=== PATIENT | male | born 1960 | race Caucasian/White ===

== ENCOUNTER 2022-11-12 14:58 | Outpatient (REF) | payer OTHER, SELFPAY | END 2022-11-12 14:59 | disposition home or self-care (01) | LOC: HO.BBR 14:58 | PROVIDERS: Visit Provider Internal Medicine Hematology & Oncology | DX: Z13.89 Encounter for screening for other disorder (principal) ==

== ENCOUNTER 2022-11-26 10:01 | Outpatient (REF) | payer OTHER, SELFPAY | END 2022-11-26 10:02 | disposition home or self-care (01) | LOC: HO.BBR 10:01 | PROVIDERS: Visit Provider Internal Medicine Hematology & Oncology | DX: Z13.89 Encounter for screening for other disorder (principal) ==

== ENCOUNTER 2022-12-10 15:01 | Outpatient (REF) | payer OTHER, SELFPAY | END 2022-12-10 15:02 | disposition home or self-care (01) | LOC: HO.BBR 15:01 | PROVIDERS: PCP Physician Assistant; Visit Provider Internal Medicine Hematology & Oncology | DX: Z13.89 Encounter for screening for other disorder (principal) ==

== ENCOUNTER 2022-12-24 13:48 | Outpatient (REF) | payer OTHER, SELFPAY | END 2022-12-24 13:49 | disposition home or self-care (01) | LOC: HO.BBR 13:48 | PROVIDERS: PCP Physician Assistant; Visit Provider Internal Medicine Hematology & Oncology | DX: Z13.89 Encounter for screening for other disorder (principal) ==

== ENCOUNTER 2023-01-07 12:51 | Outpatient (REF) | payer OTHER, SELFPAY | END 2023-01-07 12:52 | disposition home or self-care (01) | LOC: HO.BBR 12:51 | PROVIDERS: Visit Provider Internal Medicine Hematology & Oncology | DX: Z13.89 Encounter for screening for other disorder (principal) ==

== ENCOUNTER 2023-01-21 12:57 | Outpatient (REF) | payer OTHER, SELFPAY | END 2023-01-21 12:58 | disposition home or self-care (01) | LOC: HO.BBR 12:57 | PROVIDERS: Visit Provider Internal Medicine Hematology & Oncology | DX: Z13.89 Encounter for screening for other disorder (principal) ==

== ENCOUNTER 2023-03-05 15:05 | Outpatient (REF) | payer OTHER, SELFPAY | END 2023-03-05 15:06 | disposition home or self-care (01) | LOC: HO.BBR 15:05 | PROVIDERS: Visit Provider Internal Medicine Hematology & Oncology | DX: Z13.89 Encounter for screening for other disorder (principal) ==

== ENCOUNTER 2023-04-10 14:57 | Outpatient (REF) | payer OTHER, SELFPAY | END 2023-04-10 14:58 | disposition home or self-care (01) | LOC: HO.BBR 14:57 | PROVIDERS: Visit Provider Internal Medicine Hematology & Oncology | DX: Z13.89 Encounter for screening for other disorder (principal) ==

== ENCOUNTER 2023-05-13 14:49 | Outpatient (REF) | payer OTHER, SELFPAY | END 2023-05-13 14:50 | disposition home or self-care (01) | LOC: HO.BBR 14:49 | PROVIDERS: Visit Provider Internal Medicine Hematology & Oncology | DX: Z13.89 Encounter for screening for other disorder (principal) ==

== ENCOUNTER 2023-06-13 15:27 | Outpatient (REF) | payer OTHER, SELFPAY | END 2023-06-13 15:28 | disposition home or self-care (01) | LOC: HO.BBR 15:27 | PROVIDERS: PCP Physician Assistant; Visit Provider Internal Medicine Hematology & Oncology | DX: Z13.89 Encounter for screening for other disorder (principal) ==

== ENCOUNTER 2023-07-18 15:32 | Outpatient (REF) | payer OTHER, SELFPAY | END 2023-07-18 15:33 | disposition home or self-care (01) | LOC: HO.BBR 15:32 | PROVIDERS: PCP Physician Assistant; Visit Provider Internal Medicine Hematology & Oncology | DX: Z13.89 Encounter for screening for other disorder (principal) ==

== ENCOUNTER 2023-08-18 15:32 | Outpatient (REF) | payer OTHER, SELFPAY | END 2023-08-18 15:33 | disposition home or self-care (01) | LOC: HO.BBR 15:32 | PROVIDERS: PCP Physician Assistant; Visit Provider Internal Medicine Hematology | DX: Z13.89 Encounter for screening for other disorder (principal) ==

== ENCOUNTER 2023-09-08 15:20 | Outpatient (REF) | payer OTHER, SELFPAY | END 2023-09-08 15:21 | disposition home or self-care (01) | LOC: HO.BBR 15:20 | PROVIDERS: PCP Physician Assistant; Visit Provider Internal Medicine Hematology | DX: Z13.89 Encounter for screening for other disorder (principal) ==

== ENCOUNTER 2023-09-30 15:22 | Outpatient (REF) | payer OTHER, SELFPAY | END 2023-09-30 15:23 | disposition home or self-care (01) | LOC: HO.BBR 15:22 | PROVIDERS: PCP Physician Assistant; Visit Provider Internal Medicine Hematology | DX: Z13.89 Encounter for screening for other disorder (principal) ==

== ENCOUNTER 2023-10-23 15:03 | Outpatient (REF) | payer OTHER, SELFPAY | END 2023-10-23 15:04 | disposition home or self-care (01) | LOC: HO.BBR 15:03 | PROVIDERS: PCP Physician Assistant; Visit Provider Internal Medicine Hematology | DX: Z13.89 Encounter for screening for other disorder (principal) ==

== ENCOUNTER 2023-11-18 15:33 | Outpatient (REF) | payer OTHER, SELFPAY | END 2023-11-18 15:34 | disposition home or self-care (01) | LOC: HO.BBR 15:33 | PROVIDERS: PCP Physician Assistant; Visit Provider Internal Medicine Hematology | DX: Z13.89 Encounter for screening for other disorder (principal) ==

== ENCOUNTER 2024-05-26 14:47 | Outpatient (REF) | payer OTHER, SELFPAY | END 2024-05-26 14:48 | disposition home or self-care (01) | LOC: HO.BBR 14:47 | PROVIDERS: PCP Physician Assistant; Visit Provider Hospitalist | DX: Z13.89 Encounter for screening for other disorder (principal) ==

== ENCOUNTER 2024-07-08 08:56 | Outpatient (AMB) | payer OTHER, SELFPAY ==
--- NOTE | 2024-07-08 09:00 | A.OFFPC_ITS ---
Vital Signs 07/08/24 09:09 Height 6 ft 1 in Weight 159 lb 2 oz BMI 21.0 BP 124/58 L Blood Pressure Location Lt brachial Position Sitting Respiration 16 Pulse 58 Pulse Source Pulse Oximeter Temp 97.7 F Temp Source Oral Pulse Oximetry (%) 100 Oxygen Delivery Method Room Air Intake Visit Reasons: Establish Care Intake Note: patient here for new patient visit. Oral Surgery Technician Required: No Allergies No Known Allergies Allergy (Verified 07/08/24 09:03) Medication List - Last Reconciled 07/08/24 by Shea Burnham PA-C [id number]-hqtlmzllc-dmkrejbp 200-62.5-25 mcg (Trelegy Ellipta) 1 ea inhalation DAILY omeprazole 40 mg PO DAILY sildenafil 100 mg PO DAILY PRN Tobacco use date assessed: 07/08/24 Dental Screening Dental Screen Date: 07/08/24 Did you have a dental visit in the last 12 months?: Yes Did you have a dental problem in the last 6 months where you did not have access to dental care?: No Was dental information given to patient?: Patient has dentist HPI Establish Care HPI Details Patient is a 63-year-old male with a significant past medical history of anxiety depression, erectile dysfunction, pancreatic cyst, family history of pancreatic cancer, GERD, and hemochromatosis. GI: He was following with GI for GERD and his pancreatic cyst given his family history of pancreatic cancer. He states he just had imaging which showed stable findings. He was last seen by myself on 10/22/2022. He tells me he is going to get records. PULM: Following with pulmonology (but has not seen Dr. Harper in 1.5 years) and has been doing well with Romariogy until he recently had COVID. Recently had COVID 3 weeks ago and is still feeling sick with a cough, wheezing and some sinus congestion at times. States that his cough is productive of green sputum. - still smoking 30 cigarettes a day. He has been smoking for 45 years. He was supposed to be following with the low-dose CT scan screening program but states that he was lost to follow up. Psych: On Wellbutrin 100 mg twice a day But usually only takes this once a day. states he has a hard time sleeping. He takes 3 Advil PM at bedtime to try to make him fall asleep but he is often up and tossing and turning. He states that he can not get his mind to turn off sometimes. Heme: Was following with Dr. Rodriguez, now has a new robotic welding operator, for hemochromatosis q 3 months. He was started on calcium and vitamin D for osteopenia. Uro: follows with Dr. Castle for prostate checks and ED. Saw him earlier this year. States that he had a scan of his prostate and urethra told that everything looked normal. He would like to see Dermatology for a skin check. Colonoscopy/EGD: UTD completed 2023 PSA: utd- follows with dr. caslte Low-dose chest CT: Overdue PENDING SALE TO [facility] Medical History (Updated 07/08/24 @ 10:02 by Shea Burnham PA-C) Umbilical hernia Pancreatic cyst Joint pain Headache Erectile dysfunction Anxiety and depression Abnormal chest CT Surgical History (Updated 07/07/24 @ 16:09 by Amalia Sanchez CMA) H/O hemorrhoidectomy H/O: vasectomy Family History (Updated 07/08/24 @ 09:08 by Destiny Seay MA) Mother Liver disease Father Hx of CABG Prostate cancer Diabetes HTN (hypertension) Sister Cancer Social History Housing: House Patient Tobacco Use Status: Current everyday Tobacco user Cigarette Packs Per Day: 2 Cigarettes Per Day: 30 e-Cigarette/Vaping Use: Never Used Second Hand Smoke Exposure: No service: No Current occupational status: employed Current occupational exposures/hazards: No Cognitive needs: No Hearing needs: Yes Vision needs: Yes Questionnaire PHQ-9 Over the last 2 weeks, how often have you been bothered by any of the following problems? 1. Little interest or pleasure in doing things: several days 2. Feeling down, depressed, or hopeless: several days 3. Trouble falling or staying asleep, or sleeping too much: not at all 4. Feeling tired or having little energy: several days 5. Poor appetite or overeating: not at all 6. Feeling bad about yourself - or that you are a failure or have let yourself or your family down: not at all 7. Trouble concentrating on things, such as reading the newspaper or watching television: several days 8. Moving or speaking so slowly that other people could have noticed. Or the opposite - being so fidgety or restless that you have been moving around a lot more than usual: several days 9. Thoughts that you would be better off or of hurting yourself in some way: not at all Total score: 5 Source: Developed by Drs. Carlos Manuel Mckinley, Yudith Alvarado, Saeed White and colleagues, with an educational fan from [employer]. Thrive Questionnaire Date Thrive assessed: 07/02/24 I am a: Patient What is your living situation today?: I have a steady place to live Within the past 12 months, did the food you bought not last and you didn't have the money to get more?: Never true Within the past 12 months, did you worry whether your food would run out before you got money to buy more?: Never true Do you have trouble paying for medicines?: No Do you have trouble getting transportation to medical appointments?: No Do you have trouble paying your heating and electricity bill?: Yes Do you have trouble taking care of your child, family member or friend?: No Do you have trouble with day-to-day activities such as bathing, preparing meals, shopping, managing finances, etc.?: No Are you currently unemployed and looking for a job?: No Are you interested in more education?: No Please select the resources that you would like help with: None Currently or been in a relationship where the following occur: No concerns reported THRIVE Score: 1 AUDIT C Alcohol Use Questionnaire (AUDIT-C) 1. How often do you have a drink containing alcohol?: 2-3 times a week 2. How many drinks containing alcohol do you have on a typical day when you are drinking?: 3 or 4 3. How often do you have six or more drinks on one occasion?: Never Total Score: 4 WILBER-7 AMB Questionnaire WILBER-7 Date WILBER - 7 assessed: 07/08/24 Feeling nervous, anxious, or on edge: 1 = Several days Not being able to stop or control worryin = Several days Worrying too much about different things: 1 = Several days Trouble relaxin = Several days Being so restless that it is hard to sit still: 1 = Several days Becoming easily annoyed or irritable: 1 = Several days Feeling afraid as if something awful might happen: 1 = Several days Total WILBER-7 score (0-4 normal; 5-9 mild; 10-14 moderate; 15-21 severe): 7 Source: Developed by Drs. Carlos Manuel Mckinley, Yudith Alvarado, Saeed White and colleagues, with an educational fan from [employer]. Physical exam (Primary Care) Thrive Assessment: Date of Thrive Assessment Date Thrive assessed 07/02/24 07/02/24 08:32 Currently or been in a relationship where the following occur: No concerns reported Const Orientation/consciousness: patient oriented x3 HENMT Ears: hearing grossly normal bilaterally and TM's normal bilaterally Face and sinus: Yes sinuses nontender Neck Thyroid: Thyroid normal Lymphatic: no lymphadenopathy noted Resp Auscultation: rhonchi left lower and wheezes scattered wheezes Cardio Rate: regular rate Rhythm: regular rhythm Heart sounds: S1 normal heart sound present and S2 normal heart sound present GI Inspection: Yes normal to inspection Palpation (GI): Soft to palpation and Other GI palpation findings present (nontender, no cva tenderness) Auscultation: normoactive bowel sounds Rectal Exam - Male: Yes deferred Skin General skin exam: no rashes or lesions noted Neuro General: patient oriented x3, gait normal and no focal motor deficits Extrem General: Yes normal to inspection Coding Level of Care Code Est Pt Level 4 (63154) Complex EM visit Add On G2211 Diagnoses Chronic obstructive pulmonary disease with acute exacerbation J44.1 COPD type: COPD with acute exacerbation Lung infection J18.9 Smoker F17.200 Anxiety and depression F41.9; F32.A Insomnia, unspecified type G47.00 Insomnia type: unspecified Pancreatic cyst K86.2 Assessment & Plan Assessment & Plan (1) COPD (chronic obstructive pulmonary disease): Code(s): J44.9 - Chronic obstructive pulmonary disease, unspecified Category: Medical Qualifiers: COPD type: COPD with acute exacerbation Qualified Code(s): J44.1 - Chronic obstructive pulmonary disease with (acute) exacerbation Plan: Start prednisone taper. Refilled albuterol as he has been out of this. We discussed risks and benefits and adverse effects of this medication. Signs of a COPD exacerbation that would require emergent medical treatment were discussed. Continue Trelegy. (2) Lung infection: Code(s): J18.9 - Pneumonia, unspecified organism Category: Medical Plan: Start doxycycline. Discussed risks and benefits and adverse effects of this medication. Chest x-ray ordered. We will follow up pending test results. (3) Smoker: Code(s): F17.200 - Nicotine dependence, unspecified, uncomplicated Category: Social Hx Plan: Encouraged smoking cessation. He states that his last CT scan was over a year ago. He was supposed to be following with the low-dose CT scan program at [facility] but only went for a couple CT scans. I have referred him to pulmonology. (4) Anxiety and depression: Code(s): F41.9 - Anxiety disorder, unspecified; F32.A - Depression, unspecified Category: Medical Plan: Refilled Wellbutrin. (5) Insomnia: Code(s): G47.00 - Insomnia, unspecified Category: Medical Qualifiers: Insomnia type: unspecified Qualified Code(s): G47.00 - Insomnia, unspecified Plan: We will trial trazodone. Discussed risks and benefits and adverse effects of this medication. (6) Pancreatic cyst: Code(s): K86.2 - Cyst of pancreas Category: Medical Plan: Following with GI. Orders: Orders Lipid Panel Today F32.A - Depression, unspecified, F41.9 - Anxiety disorder, unspecified, K86.2 - Cyst of pancreas, N52.9 - Male erectile dysfunction, unspecified TSH reflex Free T4 Today F32.A - Depression, unspecified, F41.9 - Anxiety disorder, unspecified, K86.2 - Cyst of pancreas, N52.9 - Male erectile dysfunction, unspecified Comprehensive Met. Panel Today F32.A - Depression, unspecified, F41.9 - Anxiety disorder, unspecified, K86.2 - Cyst of pancreas, N52.9 - Male erectile dysfunction, unspecified UA CC w/rflx Micro + Cult Today F32.A - Depression, unspecified, F41.9 - Anxiety disorder, unspecified, K86.2 - Cyst of pancreas, N52.9 - Male erectile dysfunction, unspecified, Z13.220 - Encounter for screening for lipoid disorders XR chest 2V Today J18.9 - Pneumonia, unspecified organism Referrals Dermatology Referral L98.9 - Disorder of the skin and subcutaneous tissue, unspecified Thoracic/General Surgery Referral F17.200 - Nicotine dependence, unspecified, uncomplicated, Z12.2 - Encounter for screening for malignant neoplasm of respiratory organs Pulmonology Referral F17.200 - Nicotine dependence, unspecified, uncomplicated, J44.9 - Chronic obstructive pulmonary disease, unspecified, R93.89 - Abnormal findings on diagnostic imaging of other specified body structures Medications: New cyclobenzaprine 10 mg PO TID PRN 30 tabs 0RF muscle spasm trazodone 50 mg PO BEDTIME PRN 90 tabs 0RF sleep albuterol sulfate 90 mcg/actuation 2 puffs inhalation Q6H PRN 8.5 grams 1RF shortness of breath or wheezing prednisone take 3 tab po x 3 days, take 2 tab po x 3 days, 1 tab po x 3 days 18 tabs 0RF bupropion HCl XL (Wellbutrin XL) 150 mg PO QAM 90 tabs 3RF sildenafil 100 mg PO DAILY PRN 30 tabs 0RF sexual activity doxycycline hyclate 100 mg PO BID 20 tabs 0RF
[2024-07-08 09:09] VITALS: BP 124/58; PULSE 58; RESP 16; TEMP 36.5; O2SAT 100; BMI 21.0
== END 2024-07-08 09:55 | disposition home or self-care (01) ==
PROVIDERS: PCP Physician Assistant; Visit Provider Physician Assistant
DX: J44.1 Chronic obstructive pulmonary disease with (acute) exacerbation (principal); J18.9 Pneumonia, unspecified organism; F17.200 Nicotine dependence, unspecified, uncomplicated; F41.9 Anxiety disorder, unspecified; F32.A Depression, unspecified; G47.00 Insomnia, unspecified; K86.2 Cyst of pancreas

== ENCOUNTER → 2024-07-08 08:56 | Outpatient (BNVA) | payer OTHER, SELFPAY | PROVIDERS: PCP Physician Assistant; Visit Provider Physician Assistant ==

== ENCOUNTER 2024-07-08 10:00 | Outpatient (REF) | payer OTHER, SELFPAY ==
[2024-07-08 11:54] LABS: Alanine Aminotransferase 21 U/L (0-40); Albumin Level 4.3 g/dL (3.5-5.0); Alkaline Phosphatase 71 U/L (39-117); Anion Gap 11 (12-20); Aspartate Amino Transferase 17 U/L (5-37); Bilirubin Total 0.3 mg/dL (0.0-1.0); Blood Urea Nitrogen 22 mg/dL (9-16); Calcium 9.6 mg/dL (8.4-10.2); Carbon Dioxide 28 mmol/L (22-29); Chloride 105 mmol/L (96-108); Cholesterol 211 mg/dL (<200); Estimated Glomerular Filt Rate > 60; Glucose Random 78 mg/dL (60-115); HDL Cholesterol 63 mg/dL (>40); LDL Cholesterol Calculated 122 mg/dL (<100); Potassium 4.8 mmol/L (3.3-5.1); Sodium 139 mmol/L (135-145); Total Protein 6.9 g/dL (6.5-8.0); Triglycerides 132 mg/dL (<150)
[2024-07-08 12:05] LABS: Appearance Urine Clear; Color Urine Yellow; Glucose Urine UA Negative (Negative); Leukocyte Esterase Urine Negative (Negative); Nitrite Urine Negative (Negative); Specific Gravity - Urine 1.025 (1.005-1.025); Urine Blood Negative (Negative); Urine Ketones Negative (Negative); Urine Protein Negative (Neg-Trace)
[2024-07-08 12:13] LABS: TSH reflex Free T4 1.15 uIU/mL (0.32-4.0)
== END 2024-07-08 10:01 | disposition home or self-care (01) ==
LOC: HO.WFDLDS 10:00
PROVIDERS: Visit Provider Physician Assistant
DX: F41.9 Anxiety disorder, unspecified (principal); F32.A Depression, unspecified; K86.2 Cyst of pancreas; N52.9 Male erectile dysfunction, unspecified; Z13.220 Encounter for screening for lipoid disorders
CPT/HCPCS: 36415; 80053; 80061; 81003; 84443

== ENCOUNTER 2024-07-09 08:28 | Outpatient (REF) | payer OTHER, SELFPAY ==
--- NOTE | ~2024-07-09 | XR_ITS ---
EXAMINATION: XR CHEST CLINICAL INFORMATION: Pneumonia, unspecified organism COMPARISON: None available. TECHNIQUE: 2 views of the chest were obtained. FINDINGS: The lungs are well-expanded. No focal consolidation. No pleural effusions or pneumothorax. The cardiomediastinal silhouette is within normal limits. No acute osseous abnormality. Degenerative changes of thoracic spine. XR/XR chest 2V IMPRESSION: No acute pulmonary disease. Electronically signed by: Han Armenta MD 07/09/2024 09:07 AM EDT
== END 2024-07-09 08:29 | disposition home or self-care (01) ==
LOC: HO.XRAY 08:28
PROVIDERS: PCP Physician Assistant; Visit Provider Physician Assistant
DX: J18.9 Pneumonia, unspecified organism (principal)
CPT/HCPCS: 71046

== ENCOUNTER 2024-07-23 14:29 | Outpatient (AMB) | payer OTHER, SELFPAY ==
--- NOTE | 2024-07-23 13:19 | A.OFFVIS_ITS ---
Vital Signs 07/23/24 14:32 Height 6 ft 1 in Weight 157 lb 8 oz BMI 20.8 BP 120/74 Blood Pressure Location Rt brachial Position Sitting Pulse 69 Pulse Source Pulse Oximeter Pulse Oximetry (%) 97 Oxygen Delivery Method Room Air Intake Visit Reasons: COPD Allergies No Known Allergies Allergy (Verified 07/23/24 14:34) HPI HPI COPD: Details: Rommel is a pleasant 63-year-old female, current smoker, with 60+ pack year history with underlying COPD. He was referred by PCP for pulmonary evaluation. He is currently prescribed Trelegy and albuterol MDI with moderate effect. He was recently prescribed prednisone and doxycyline for exacerbation on 07/08 after worsening respiratory symptoms secondary to COVID towards the end of May. He did not have Paxlovid. Of note, he has been off of Trelegy for the past month notes worsening dyspnea on exertion and productive cough. He denies fevers or chills. Had PFT in 2021 which revealed mild COPD. He had prior chest CT in 2021 which revealed emphysema and other findings suggestive of NSIP. He had previously been established with [facility] pulmonary following abnormalities however lost to follow up. Denies any history of asthma however did have secondary exposures to tobacco as a child. He denies any seasonal allergies. He reports daughter, son and grandson with asthma. 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 He currently smokes 1-1.5 ppd previously 1.5-2 ppd for the past 45 years. He has trialed Chantix in the past with adverse reactions. He is currently on Wellbutrin which started on 07/08. Patient also notes worsening memory, brain fog, nonrestorative sleep, daytime fatigue and frequent nocturnal awakenings. He denies prior sleep study. [facility] Medical History (Updated 07/23/24 @ 15:23 by Josy Rushing NP) Umbilical hernia Pancreatic cyst Joint pain Headache Erectile dysfunction Anxiety and depression Abnormal chest CT Surgical History (Updated 07/07/24 @ 16:09 by Amalia Sanchez CMA) H/O hemorrhoidectomy H/O: vasectomy Family History (Updated 07/08/24 @ 09:08 by Destiny Seay MA) Mother Liver disease Father Hx of CABG Prostate cancer Diabetes HTN (hypertension) Sister Cancer Social History Housing: House Patient Tobacco Use Status: Current everyday Tobacco user Cigarette Packs Per Day: 2 Cigarettes Per Day: 30 e-Cigarette/Vaping Use: Never Used Second Hand Smoke Exposure: No service: No Current occupational status: employed Current occupational exposures/hazards: No Cognitive needs: No Hearing needs: Yes Vision needs: Yes Review of Systems Const Denies chills, Denies excessive sweating, Denies fever(s), Denies headache(s) and Denies night sweats Eyes Denies dry eyes, Denies irritation and Denies itchy eyes ENT Reports Normal hearing present, Denies headache(s), Denies nasal congestion, D enies nasal discharge, Denies post nasal drip and Denies sore throat Card Denies chest pain, Denies chest pain at rest, Denies chest pain with activity, Denies claudication, Denies leg edema, Denies orthopnea and Denies paroxysmal nocturnal dyspnea Resp Denies chest congestion, Denies excessive phlegm production, Denies pain on inspiration, Denies pain with cough, Denies stridor and Denies wheezing Musc Denies myalgias Neuro Reports Normal hearing present and Denies headache(s) Endo Denies excessive sweating Xavier/Lymph Denies lymphadenopathy Aller/Immun Denies itchy eyes, Denies seasonal rhinorrhea and Denies wheezing Physical Exam Vital Signs: Last Vital Signs Pulse 69 07/23/24 14:32 BP 120/74 07/23/24 14:32 Pulse Ox 97 07/23/24 14:32 Oxygen Delivery Method Room Air 07/23/24 14:32 BMI result Body Mass Index 20.8 Const General: cooperative, healthy appearing, comfortable, no acute distress, well developed and alert Orientation/consciousness: patient oriented x3 Limitations: no limitations HEENT Head: Yes normal to inspection, Yes normocephalic and Yes atraumatic Ears: hearing grossly normal bilaterally and external ears normal Eyes General: appearance normal, both eyes and all related structures Eyelids: Yes eyelids normal Sclerae: sclerae normal EOM: EOMs intact bilaterally Neck Neck: Yes normal visual inspection and Yes no lymphadenopathy Lymphatic: no lymphadenopathy noted Chest Chest palpation & inspection: normal inspection of the chest Resp Other: inspiratory crackles LLL Effort & Inspection: normal respiratory effort, able to speak in complete sentences, no audible wheezes, no stridor, not tachypneic, no tripod positioning and no use of accessory muscles Cardio Jugular venous distension: no JVD Rate: regular rate Rhythm: regular rhythm Skin Other: warm, dry General skin exam: no rashes or lesions noted Neuro General: patient oriented x3 Cranial nerves: Yes Normal hearing present Cognition (Neuro): normal cognition Gait exam (Neuro): Normal gait present Extrem General: Yes normal to inspection, Yes capillary refill normal, Yes no clubbing, cyanosis or edema and Yes no pedal edema Psych Appearance: grossly normal and well kempt Speech and movement: Normal speech and movement present and Clear speech present Affect: normal affect Attitude: cooperative Thought process: Normal thought process present Thought content: Normal thought content present Insight: Good insight present (Psych) Judgement: Good judgement present (Psych) Results Reviewed Results Reviewed: RESULT: CT Chest W/O Contrast CT Chest W/O Contrast Reason: Current smoker, history of emphysema, previous CT done in 2009. COMPARISON: Report from CT chest 03/09/2010. No images are available. TECHNIQUE: Helical CT scan of the chest without IV contrast, formatted in 3 planes. Weight-based protocol was performed using automatic exposure control. CTDIvol Body: 8.94 mGy, DLP Body: 353 mGy*cm. FINDINGS: Paper Mill Supervisor View Findings, Lines and Tubes: None. Trachea and Airways: Patent without evidence of tracheal or endobronchial lesion. Lungs and Pleura: No effusion or pneumothorax. Paraseptal emphysematous changes and multiple subpleural cysts mostly seen at the apices and the right lung base. Bilateral peripheral reticular opacities with a basal to apical distribution. 2 mm calcified nodule in the lateral segment of the right lower lobe (S3: 74). 5 mm nodule at the posterior segment of the right lung base (3:91), which may represent an atelectatic focus. Aorta: Mild vascular calcification but no aneurysm. Mediastinum and Jenna: No hematoma, mass or adenopathy. No esophageal abnormalities. Heart: Normal cardiac size. No pericardial effusion. Mild coronary artery calcifications. Chest Wall Soft Tissues: Normal. Diaphragm and upper abdomen: Normal. The partially visualized adrenal glands are unremarkable. Bones: Mild degenerative changes of the thoracic spine. No acute osseous process. IMPRESSION: Finding suggestive of moderate paraseptal emphysema with multiple bilateral subpleural cysts. Peripheral reticular opacities with the basal to apical distribution. These findings are suggestive of a chronic fibrotic process that is most compatible with nonspecific interstitial pneumonia (NSIP). 5 mm nodule at the posterior segment of the right lung base likely represent atelectatic focus. In a high-risk patient with a solid nodule <6 mm, CT at 12 months is optional with stronger consideration if there is suspicious nodule morphology and/or upper lobe location. Vasiliy Christine, et al. Guidelines for Management of Incidental Pulmonary Nodules Detected on CT Images: From the Fleischner Society 2017. Radiology. 2017 Mar;284(1):228-243. I have personally reviewed the images and I agree with this report. WSN: [id number] Ordering Physician: Shea Burnham PFT's Complete Please click on pdf link to open report PFT's Complete Lab: [facility] Name: ROMMEL ADKINS CMRN: [id number] Sex: M Age: 61 Ethnicity: C Height: 73 In Weight: 160 Lb BMI: 20.1 Referring: Ranjiht Harper M.D. Date of test: 08-Jul-2022 SPIROMETRY: FEV1 3.24, 83%; FVC 4.78, 94%; FEV1/FVC 68%; PEFR 5.27, 54%; SVC 5.04, 99% LUNG VOLUMES (N2): TLC 8.33, 105%; FRC 5.56, 135%; RV 3.29, 134%, IC 2.77, ERV 2.27 DIFFUSING CAPACITY: DLCO and KCO are 58% predicted adjusted for lung volume, Hb, barometric pressure DLCO 17.55, 57%, KCO 2.37, 60% predicteds adjusted for Hb of 15.7 VA 7.42, 96% 4.54, 89%, 95% of FVC INTERPRETATION: Mild obstruction with hyperinflation. TLC is normal. The diffusing capacity is moderately reduced. Interpreting Physician: Ranjith Harper M.D. Assessment & Plan Assessment & Plan (1) COPD (chronic obstructive pulmonary disease): Code(s): J44.9 - Chronic obstructive pulmonary disease, unspecified Category: Medical Qualifiers: COPD type: COPD with acute exacerbation Qualified Code(s): J44.1 - Chronic obstructive pulmonary disease with (acute) exacerbation (2) Smoker: Code(s): F17.200 - Nicotine dependence, unspecified, uncomplicated Category: Social Hx (3) Multiple pulmonary nodules: Code(s): R91.8 - Other nonspecific abnormal finding of lung field Category: Medical (4) Daytime somnolence: Code(s): R40.0 - Somnolence Category: Medical Plan Rommel presents for pulmonary evaluation for underlying mild COPD. Encouraged patient to restart Trelegy and use albuterol p.r.n.. Prior chest CT suggestive of NSIP, will send for repeat chest CT. Smoking cessation discussed and patient currently on Wellbutrin. He reported symptoms suggestive of OWEN, will send for home sleep study. All questions were answered and patient is in agreement of plan. Will follow-up in 6-8 weeks or sooner if needed. ct home sleep study refill trelegy Orders: Orders RT home sleep study Today R40.0 - Somnolence CT chest wo IV con Today R91.8 - Other nonspecific abnormal finding of lung field Medications: New mlqjmijxaeg-tvainghcl-hnydrjte 200-62.5-25 mcg (Trelegy Ellipta) 1 ea inhalation DAILY 60 ea 6RF Coding Level of Care Code New Pt Level 4 (80243) Diagnoses Chronic obstructive pulmonary disease with acute exacerbation J44.1 COPD type: COPD with acute exacerbation Smoker F17.200 Multiple pulmonary nodules R91.8 Daytime somnolence R40.0
[2024-07-23 14:32] VITALS: BP 120/74; PULSE 69; O2SAT 97; BMI 20.8
== END 2024-07-23 15:06 | disposition home or self-care (01) ==
PROVIDERS: PCP Physician Assistant; Referring Provider Physician Assistant; Visit Provider Nurse Practitioner Family
DX: J44.1 Chronic obstructive pulmonary disease with (acute) exacerbation (principal); F17.200 Nicotine dependence, unspecified, uncomplicated; R91.8 Other nonspecific abnormal finding of lung field; R40.0 Somnolence
CPT/HCPCS: 99204

== ENCOUNTER → 2024-07-23 14:29 | Outpatient (BNVA) | payer OTHER, SELFPAY | PROVIDERS: PCP Physician Assistant; Referring Provider Physician Assistant; Visit Provider Nurse Practitioner Family ==

== ENCOUNTER 2024-08-12 10:25 | Outpatient (AMB) | payer OTHER, SELFPAY ==
--- NOTE | 2024-08-12 10:50 | A.OFFPC_ITS ---
Vital Signs 08/12/24 10:55 08/12/24 10:59 Height 6 ft 1 in Weight 159 lb 6 oz BMI 21.0 BP 142/86 H 122/80 Blood Pressure Location Rt brachial Rt brachial Position Sitting Sitting Pulse 55 Pulse Source Pulse Oximeter Pulse Oximetry (%) 98 Oxygen Delivery Method Room Air Intake Visit Reasons: 30 min med check Intake Note: Follow up. Lower right sided pain Allergies trazodone Allergy (Unknown, Verified 08/12/24 10:58) tremors Medication List - Last Reconciled 08/12/24 by Shea Burnhma PA-C albuterol sulfate 90 mcg/actuation 2 puffs inhalation Q6H PRN bupropion HCl XL (Wellbutrin XL) 150 mg PO QAM cyclobenzaprine 10 mg PO TID PRN xnnloxugize-pzmoavndz-vfiedmvw 200-62.5-25 mcg (Trelegy Ellipta) 1 ea inhalation DAILY ibuprofen-diphenhydramine cit 200-38 mg (Advil PM) 3 caps PO BEDTIME omeprazole 40 mg PO DAILY sildenafil 100 mg PO DAILY PRN Tobacco use date assessed: 07/08/24 Dental Screening Dental Screen Date: 07/08/24 HPI 30 min med check HPI Details Patient is a 63-year-old male with a significant past medical history of anxiety depression, erectile dysfunction, pancreatic cyst, family history of pancreatic cancer, GERD, and hemochromatosis presenting today for a follow up. GI: He was following with GI for GERD and his pancreatic cyst given his family history of pancreatic cancer. He states he just had imaging which showed stable findings. He was last seen by myself on 10/22/2022. He tells me he is going to get records. PULM: Following with pulmonology and has been doing well with Trelegy until he recently had COVID. -He had a sleep study ordered - still smoking 30 cigarettes a day. He has been smoking for 45 years. He was supposed to be following with the low-dose CT scan screening program but states that he was lost to follow up. Psych: On Wellbutrin 150 mg. states he has a hard time sleeping. He trialed the trazodone but states it made him feel shaky. He did not like it. He wants to try something different. Heme: Was following with Dr. Rodriguez, now has a new quality consultant, for hemochromatosis q 3 months. He was started on calcium and vitamin D for osteopenia. Uro: follows with Dr. Castle for prostate checks and ED. Saw him earlier this year. States that he had a scan of his prostate and urethra told that everything looked normal. Musculoskeletal: He states that his right flank has been painful now for the last few months. He states that intermittently he would get lumbar strains and mid back strains but this just feels deeper than that. He is using the heating pad almost every day. In the past he require cortisone injections. He has not had anything for about 8 years. Denies any radiation down the legs. No nu mbness, tingling or weakness. No bowel or bladder dysfunction. No urinary symptoms. He is worried that this could be something like his kidney or gallbladder. He does not have any pain with eating. Denies any nausea, vomiting or diarrhea. Denies any increased urinary frequency or urgency. No blood in the urine. Did have a recent urine which was negative. He would like to see Dermatology for a skin check. Colonoscopy/EGD: UTD completed 2023 PSA: utd- follows with dr. castle Low-dose chest CT: Overdue [facility] Medical History (Updated 08/12/24 @ 11:14 by Shea Burnham PA-C) Umbilical hernia Pancreatic cyst Joint pain Headache Erectile dysfunction Anxiety and depression Abnormal chest CT Surgical History (Updated 07/07/24 @ 16:09 by Amalia Sanchez CMA) H/O hemorrhoidectomy H/O: vasectomy Family History (Updated 07/08/24 @ 09:08 by Destiny Seay MA) Mother Liver disease Father Hx of CABG Prostate cancer Diabetes HTN (hypertension) Sister Cancer Social History (Updated 08/12/24 @ 11:00 by Amalia Sanchez CMA) Housing: House Alcohol intake: current Patient Tobacco Use Status: Current everyday Tobacco user Cigarette Packs Per Day: 2 Cigarettes Per Day: 30 e-Cigarette/Vaping Use: Never Used Second Hand Smoke Exposure: No service: No Current occupational status: employed Current occupational exposures/hazards: No Cognitive needs: No Hearing needs: Yes Vision needs: Yes Questionnaire PHQ-9 Over the last 2 weeks, how often have you been bothered by any of the following problems? 9. Thoughts that you would be better off or of hurting yourself in some way: not at all Source: Developed by Drs. Carlos Manuel Mckinley, Yudith Alvarado, Saeed White and colleagues, with an educational fan from [employer]. Thrive Questionnaire Date Thrive assessed: 07/02/24 I am a: Patient What is your living situation today?: I have a steady place to live Within the past 12 months, did the food you bought not last and you didn't have the money to get more?: Never true Within the past 12 months, did you worry whether your food would run out before you got money to buy more?: Never true Do you have trouble paying for medicines?: No Do you have trouble getting transportation to medical appointments?: No Do you have trouble paying your heating and electricity bill?: Yes Do you have trouble taking care of your child, family member or friend?: No Do you have trouble with day-to-day activities such as bathing, preparing meals, shopping, managing finances, etc.?: No Are you currently unemployed and looking for a job?: No Are you interested in more education?: No Please select the resources that you would like help with: None Currently or been in a relationship where the following occur: No concerns reported THRIVE Score: 1 WILBER-7 AMB Questionnaire WILBER-7 Date WILBER - 7 assessed: 07/08/24 Becoming easily annoyed or irritable: 0 = Not at all Source: Developed by Drs. Carlos Manuel Mckinley, Saeed Hatfield and colleagues, with an educational fan from [employer]. Physical exam (Primary Care) Vital Signs: Last Vital Signs Pulse 55 08/12/24 10:55 BP 122/80 08/12/24 10:59 Pulse Ox 98 08/12/24 10:55 Oxygen Delivery Method Room Air 08/12/24 10:55 BMI result Body Mass Index 21.0 Tobacco/Smoking Status: Tobacco use Status Tobacco use date assessed 07/08/24 08/12/24 10:58 Patient Tobacco Use Status Current everyday Tobacco 08/12/24 11:00 e-Cigarette/Vaping Use Never Used 08/12/24 11:00 Thrive Assessment: Date of Thrive Assessment Date Thrive assessed 07/02/24 08/12/24 10:58 Currently or been in a relationship where the following occur: No concerns reported Const Orientation/consciousness: patient oriented x3 HENMT Ears: hearing grossly normal bilaterally Neck Thyroid: Thyroid normal Lymphatic: no lymphadenopathy noted Resp Auscultation: clear to auscultation bilaterally Cardio Rate: regular rate Rhythm: regular rhythm Heart sounds: S1 normal heart sound present and S2 normal heart sound present GI Inspection: Yes normal to inspection Palpation (GI): Soft to palpation and Other GI palpation findings present (nontender, no cva tenderness) Auscultation: normoactive bowel sounds Rectal Exam - Male: Yes deferred Skin General skin exam: no rashes or lesions noted Neuro General: patient oriented x3, gait normal and no focal motor deficits Results Reviewed Results Reviewed: Patient is a 63-year-old male with a significant past medical history of anxiety depression, erectile dysfunction, pancreatic cyst, family history of pancreatic cancer, GERD, and hemochromatosis. GI: He was following with GI for GERD and his pancreatic cyst given his family history of pancreatic cancer. He states he just had imaging which showed stable findings. He was last seen by myself on 10/22/2022. He tells me he is going to get records. PULM: Following with pulmonology (but has not seen Dr. Harper in 1.5 years) and has been doing well with Trelegy until he recently had COVID. Recently had COVID 3 weeks ago and is still feeling sick with a cough, wheezing and some sinus congestion at times. States that his cough is productive of green sputum. - still smoking 30 cigarettes a day. He has been smoking for 45 years. He was supposed to be following with the low-dose CT scan screening program but states that he was lost to follow up. Psych: On Wellbutrin 100 mg twice a day But usually only takes this once a day. states he has a hard time sleeping. He takes 3 Advil PM at bedtime to try to make him fall asleep but he is often up and tossing and turning. He states that he can not get his mind to turn off sometimes. Heme: Was following with Dr. Rodriguez, now has a new quality consultant, for hemochromatosis q 3 months. He was started on calcium and vitamin D for o steopenia. Uro: follows with Dr. Castle for prostate checks and ED. Saw him earlier this year. States that he had a scan of his prostate and urethra told that everything looked normal. He would like to see Dermatology for a skin check. Colonoscopy/EGD: UTD completed 2023 PSA: utd- follows with dr. castle Low-dose chest CT: Overdue Coding Level of Care Code Est Pt Level 4 (89785) Complex EM visit Add On G2211 Diagnoses Right flank pain R10.9 Chronic lumbar pain M54.50; G89.29 Right-sided thoracic back pain M54.6 Insomnia, unspecified type G47.00 Insomnia type: unspecified Assessment & Plan Assessment & Plan (1) Right flank pain: Code(s): R10.9 - Unspecified abdominal pain Category: Medical Plan: Ultrasound ordered (2) Chronic lumbar pain: Code(s): M54.50 - Low back pain, unspecified; G89.29 - Other chronic pain Category: Medical Plan: X-ray ordered (3) Right-sided thoracic back pain: Code(s): M54.6 - Pain in thoracic spine Category: Medical Plan: As above. Referral to physiatry. (4) Insomnia: Code(s): G47.00 - Insomnia, unspecified Category: Medical Qualifiers: Insomnia type: unspecified Qualified Code(s): G47.00 - Insomnia, unspecified Plan: We will try hydroxyzine. We discussed risks and benefits and adverse effects of this medication. He will let me know if it is effective. Orders: Orders XR thoracic spine 3V Today M54.6 - Pain in thoracic spine XR lumbar spine 2-3V Today M54.50 - Low back pain, unspecified US retroperitoneal comp Today G89.29 - Other chronic pain, M54.50 - Low back pain, unspecified, M54.6 - Pain in thoracic spine, R10.9 - Unspecified abdominal pain Referrals Physiatry Referral G89.29 - Other chronic pain, M54.50 - Low back pain, unspecified, M54.6 - Pain in thoracic spine Medications: New hydroxyzine HCl 25 mg PO BEDTIME 30 tabs 2RF
[2024-08-12 10:55] VITALS: BP 142/86; PULSE 55; O2SAT 98; BMI 21.0
[2024-08-12 10:59] VITALS: BP 122/80
== END 2024-08-12 11:31 | disposition home or self-care (01) ==
PROVIDERS: PCP Physician Assistant; Visit Provider Physician Assistant
DX: R10.9 Unspecified abdominal pain (principal); M54.50 Low back pain, unspecified; G89.29 Other chronic pain; M54.6 Pain in thoracic spine; G47.00 Insomnia, unspecified

== ENCOUNTER 2024-08-31 16:12 | Outpatient (REF) | payer OTHER, SELFPAY ==
--- NOTE | ~2024-08-31 | XR_ITS ---
EXAMINATION: XR THORACIC SPINE CLINICAL INFORMATION: M54.6 - Pain in thoracic spine COMPARISON: None available. TECHNIQUE: 3 views of the thoracic spine were obtained. FINDINGS: Marginal osteophyte formation, endplate sclerosis and decreased intervertebral disc height at T9-10. No acute cortical disruption or gross malalignment. Questionable grade 1 anterolisthesis C3-4. No lytic or blastic lesions. XR/XR thoracic spine 3V IMPRESSION: Multilevel spondylosis more conspicuous at T9-10. Electronically signed by: Sudheer Valle MD 09/10/2024 03:18 PM EST
--- NOTE | ~2024-08-31 | XR_ITS ---
EXAMINATION: XR LUMBOSACRAL SPINE CLINICAL INFORMATION: M54.50 - Low back pain, unspecified COMPARISON: None available. TECHNIQUE: Three views of the lumbosacral spine. FINDINGS: Submitted for interpretation on September 10, 2024. Dextroconvex rotoscoliosis apex at L2-3. Marginal osteophyte formation, endplate sclerosis and decreased intervertebral disc height, L2-3 and L4-5 levels. Facet joint hypertrophy at L5-S1. Grade 1 retrolisthesis, L2-3. No acute cortical disruption. No lytic or blastic lesions. XR/XR lumbar spine 2-3V IMPRESSION: Multilevel spondylosis and dextroconvex rotoscoliosis more conspicuous at L2-3 and L4-5 levels. Grade 1 retrolisthesis, L2-3. Electronically signed by: Sudheer Valle MD 09/10/2024 03:16 PM [facility]
--- NOTE | ~2024-08-31 | US_ITS ---
EXAMINATION: US RETROPERITONEAL COMPLETE (RENAL) CLINICAL INFORMATION: Unspecified abdominal pain. COMPARISON: None available. TECHNIQUE: Real-time imaging of the kidneys and bladder seen grayscale and color Doppler technique. FINDINGS: Submitted for interpretation on September 10, 2024. RIGHT KIDNEY: 11 x 5 x 6 cm (SAG x AP x TRV). The kidney is normal in size, contour, and echogenicity. Renal cortical thickness is normal. No renal calculi or hydronephrosis. There is a 1.2 cm anechoic lesion in the upper pole without flow on color Doppler interrogation. There is flow on color Doppler interrogation of the renal hilum. LEFT KIDNEY: 11 x 6 x 5 cm (SAG x AP x TRV). The kidney is normal in size, contour, and echogenicity. Renal cortical thickness is normal. No renal calculi or hydronephrosis. There is a 1 cm anechoic lesion at the corticomedullary junction midportion. No flow on color Doppler interrogation. Questionable punctate calcification. There is flow on color Doppler interrogation of the renal hilum. BLADDER: Fluid-filled. Bilateral ureteral jets are demonstrated. Prevoid bladder volume is 127.0 mL. Postvoid bladder volume is 5 mL. PROSTATE GLAND: The prostate volume is 22 mL. US/US retroperitoneal comp IMPRESSION: No hydronephrosis. No residual amount of urine in a post void image. Bilateral renal cysts. Questionable nonobstructing calculus left kidney.. Electronically signed by: Sudheer Valle MD 09/10/2024 03:50 PM EST
== END 2024-08-31 16:13 | disposition home or self-care (01) ==
LOC: HO.US 16:12
PROVIDERS: PCP Physician Assistant; Visit Provider Physician Assistant
DX: R10.9 Unspecified abdominal pain (principal); M54.50 Low back pain, unspecified; G89.29 Other chronic pain; M54.6 Pain in thoracic spine
CPT/HCPCS: 72072; 72100; 76770

== ENCOUNTER → 2024-08-31 16:15 | Outpatient (BNV) | payer OTHER, SELFPAY | PROVIDERS: PCP Physician Assistant; Visit Provider Radiology Diagnostic Radiology | DX: R10.9 Unspecified abdominal pain (principal); M47.9 Spondylosis, unspecified; M41.86 Other forms of scoliosis, lumbar region | CPT/HCPCS: 72072; 72100; 76770 ==

== ENCOUNTER → 2024-09-02 14:49 | Outpatient (REF) | payer OTHER, SELFPAY | LOC: HO.SL 14:49 | PROVIDERS: PCP Physician Assistant; Visit Provider Nurse Practitioner Family | DX: R40.0 Somnolence (principal); G47.33 Obstructive sleep apnea (adult) (pediatric) | CPT/HCPCS: 95806 ==

== ENCOUNTER → 2024-09-02 15:03 | Outpatient (BNV) | payer OTHER, SELFPAY | PROVIDERS: PCP Physician Assistant; Visit Provider Psychiatry & Neurology Neurology | DX: G47.33 Obstructive sleep apnea (adult) (pediatric) (principal) | CPT/HCPCS: 95806 ==

== ENCOUNTER 2024-09-10 10:37 | Outpatient (AMB) | payer OTHER, SELFPAY ==
--- NOTE | 2024-09-10 12:21 | MHC.OFFWIV ---
Intake Vital Signs 09/10/24 12:25 Height 6 ft 1 in Weight 151 lb BMI 19.9 BP 117/70 Blood Pressure Location Rt brachial Position Sitting Respiration 12 Pulse 63 Pulse Source Pulse Oximeter Temp 97.6 F Temp Source Oral Pulse Oximetry (%) 100 Oxygen Delivery Method Room Air Intake Visit Reasons: cough/fever/weak Intake Note: Patient complaining of fever, chills, sob, dizziness, lightheaded, back px, and upset stomach since Friday off and on. Patient Tobacco Use Status: Current everyday Tobacco user Allergies trazodone Allergy (Unknown, Verified 09/10/24 12:44) tremors Medication List - Last Reconciled 09/10/24 by Dana Oakley, NON DESTRUCTIVE TESTING INSPECTOR- albuterol sulfate 90 mcg/actuation 2 puffs inhalation Q6H PRN bupropion HCl XL (Wellbutrin XL) 150 mg PO QAM cyclobenzaprine 10 mg PO TID PRN neqnvobuxwe-gyryehdxk-ouktfrgv 200-62.5-25 mcg (Trelegy Ellipta) 1 ea inhalation DAILY hydroxyzine HCl 25 mg PO BEDTIME ibuprofen-diphenhydramine cit 200-38 mg (Advil PM) 3 caps PO BEDTIME omeprazole 40 mg PO DAILY sildenafil 100 mg PO DAILY PRN Do you need a note to return to daycare/school/sports/work: No HPI HPI Comments History of Present Illness Details History of Present Illness The patient is a 63-year-old male presenting with flu-like symptoms. He reports onset of fever, chills, weakness, and cough since Friday night, which improved slightly during Friday when he attended work. Symptoms recurred with fever on Friday. The patient has a history of emphysema, currently managed with daily Trelegy in the morning and Albuterol as needed, though he reports limited relief with Albuterol. Notably, he has a recurrent history of bacterial pneumonia resulting in increased frequency this past year, with four episodes. He was treated with antibiotics for pneumonia one to two months ago. Has CT of chest ordered by Pulm today. Unrelated mentions: The patient has had an ultrasound identifying a renal cyst, and he describes experiencing significant back pain, which varies in intensity. There is notable urgency and frequency in urination, notably worsening with illness, although not consistently new. He reports an episodic pattern of back pain over the last five years and has been living with a heating pad for symptomatic relief. Physical Exam Awake alert NAD Sclera and conjunctiva clear bilat Nares patent, turbinates within normal limits, no sinus tenderness with palpation bilat TM intact and clear bilat MMM, pharynx WNL RRR LS CTAB Plan - Initiate Tamiflu to address suspected influenza; two doses daily for five days to expedite recovery and reduce transmission. - Monitor and continue management of emphysema with current inhalers; assess efficacy, given limited relief. Smoking cessation. - Further evaluation of the renal cyst is necessary; schedule follow-up with PCP to review plan of care. - Ensure appropriate follow-up regarding the recurrent pneumonia episodes, potentially correlate with CT chest results once available. - Encourage continued symptom monitoring and report any further complications such as nausea or changes in urination, which may indicate a concurrent urinary tract concern. Patient was informed and verbally consented to the use of an ambient scribe for clinic note documentation during this visit. RTO edu provided, encouraged to schedule PCP fu 1-2 weeks to review renal cyst plan of care This note is constructed using voice recognition software. While every effort has been made to ensure accuracy in dressed poultry grader, still errors may have been included Sometimes, these errors may affect the content or meaning of the given sentence . Total time spent caring for the patient today was 30 minutes. This includes time spent before the visit reviewing the chart, time spent during the visit, and time spent after the visit on documentation COUNT INCLUDES THE [facility] Medical History (Updated 09/10/24 @ 17:58 by Dana Oakley, [facility]) Umbilical hernia Pancreatic cyst Joint pain Headache Erectile dysfunction Anxiety and depression Abnormal chest CT Surgical History (Updated 07/07/24 @ 16:09 by Amalia Sanchez CMA) H/O hemorrhoidectomy H/O: vasectomy Family History (Updated 07/08/24 @ 09:08 by Destiny Seay MA) Mother Liver disease Father Hx of CABG Prostate cancer Diabetes HTN (hypertension) Sister Cancer Social History (Updated 08/12/24 @ 11:00 by Amalia Sanchez CMA) Housing: House Alcohol intake: current Patient Tobacco Use Status: Current everyday Tobacco user Cigarette Packs Per Day: 2 Cigarettes Per Day: 30 e-Cigarette/Vaping Use: Never Used Second Hand Smoke Exposure: No service: No Current occupational status: employed Current occupational exposures/hazards: No Cognitive needs: No Hearing needs: Yes Vision needs: Yes Physical Exam Vital Signs: Last Vital Signs Temp 97.6 F 09/10/24 12:25 Pulse 63 09/10/24 12:25 Resp 12 09/10/24 12:25 BP 117/70 09/10/24 12:25 Pulse Ox 100 09/10/24 12:25 Oxygen Delivery Method Room Air 09/10/24 12:25 BMI result Body Mass Index 19.9 Assessment & Plan Assessment & Plan (1) Flu-like symptoms: Code(s): R68.89 - Other general symptoms and signs (2) Smoker: Code(s): F17.200 - Nicotine dependence, unspecified, uncomplicated (3) COPD (chronic obstructive pulmonary disease): Code(s): J44.9 - Chronic obstructive pulmonary disease, unspecified Qualifiers: COPD type: COPD with acute exacerbation Qualified Code(s): J44.1 - Chronic obstructive pulmonary disease with (acute) exacerbation (4) Renal cyst: Code(s): N28.1 - Cyst of kidney, acquired Plan . Medications: New oseltamivir (Tamiflu) 75 mg PO Q12H 10 caps 0RF 5 days Coding Level of Care Code Est Pt Level 4 (40363) Diagnoses Flu-like symptoms R68.89 Smoker F17.200 Chronic obstructive pulmonary disease with acute exacerbation J44.1 COPD type: COPD with acute exacerbation Renal cyst N28.1
[2024-09-10 12:25] VITALS: BP 117/70; PULSE 63; RESP 12; TEMP 36.4; O2SAT 100; BMI 19.9
== END 2024-09-10 13:01 | disposition home or self-care (01) ==
LOC: HO.HMCWIW 10:37
PROVIDERS: PCP Physician Assistant; Visit Provider Nurse Practitioner Family
DX: R68.89 Other general symptoms and signs (principal); F17.200 Nicotine dependence, unspecified, uncomplicated; J44.1 Chronic obstructive pulmonary disease with (acute) exacerbation; N28.1 Cyst of kidney, acquired

== ENCOUNTER 2024-09-10 13:32 | Outpatient (REF) | payer OTHER, SELFPAY | END 2024-09-10 13:33 | disposition home or self-care (01) | LOC: HO.CT 13:32 | PROVIDERS: PCP Physician Assistant; Visit Provider Nurse Practitioner Family | DX: R91.8 Other nonspecific abnormal finding of lung field (principal) | CPT/HCPCS: 71250 ==

== ENCOUNTER → 2024-09-10 13:36 | Outpatient (BNV) | payer OTHER, SELFPAY | PROVIDERS: PCP Physician Assistant; Visit Provider Radiology Diagnostic Radiology | DX: R91.8 Other nonspecific abnormal finding of lung field (principal); J43.9 Emphysema, unspecified | CPT/HCPCS: 71250 ==

== ENCOUNTER 2024-09-16 14:40 | Outpatient (AMB) | payer OTHER, SELFPAY ==
--- NOTE | 2024-09-16 14:41 | A.OFFPC_ITS ---
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 Allergies trazodone Allergy (Unknown, Verified 09/16/24 14:43) tremors Medication List - Last Reconciled 09/16/24 by Shea Burnham PA-C albuterol sulfate 90 mcg/actuation 2 puffs inhalation Q6H PRN benzonatate 100 mg PO TID PRN bupropion HCl XL (Wellbutrin XL) 150 mg PO QAM doxycycline hyclate 100 mg PO BID qainseajntk-ocevdayob-ccystwtc 200-62.5-25 mcg (Trelegy Ellipta) 1 ea inhalation DAILY hydroxyzine HCl 25 mg PO BEDTIME ibuprofen-diphenhydramine cit 200-38 mg (Advil PM) 3 caps PO BEDTIME omeprazole 40 mg PO DAILY sildenafil 100 mg PO DAILY PRN tizanidine (Zanaflex) 4 mg PO Q8H PRN Tobacco use date assessed: 07/08/24 Dental Screening Dental Screen Date: 07/08/24 HPI Renal cyst/has questions and having lots of pain HPI Details History of Present Illness The patient is a 63-year-old male presenting with chronic back pain and episodes of dizziness. 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 The patient has been experiencing chronic back pain, exacerbated by physical activity, which is attributed to the osteoarthritic changes. He has an upcoming appointment scheduled with physiatry. He is using Advil with temporary improvement. Interventions for the back pain have included pfew-itg-zgdtvtf medications like Tylenol and Advil. He has been prescribed muscle relaxants (Xanaflex) with prior effective responses, although he reported limited relief with Flexeril recently. The patient also reports episodes of dizziness and near-fainting, including two instances in the past week?one at breakfast where he had to sit in his truck and another three days later. He states that he thinks he was well hydrated. He was not fasting. He was not on any new medications. He did not have any chest pain with it but he does have baseline shortness on breath with his COPD. He denies experiencing any palpitations at the time. Additionally, he had diagnostic tests which revealed bilateral kidney cysts and a possible nonobstructing renal stone on the left side. He was referred to Urology and has an upcoming appointment. The patient also notes symptoms of a persistent cough lasting three weeks, not improved with Tamiflu. He states that it started with flu-like symptoms and then resulted in this ongoing productive cough. He has been using albuterol only a couple times a week. Compliant with the Trelegy. His CT scan from pulmonology is still pending. The dizziness episodes led to a discussion about further cardiac evaluations due to the patient's history and risk factors, including age and smoking. Health Maintenance - Frequent monitoring of hydration statu s - Encouraged to increase water intake an d maintain hydration - Advised on the use of inhalers for LINING MARKER D management - Monitoring of blood glucose levels giv en dietary concerns - Advised cardiac evaluation including s tress test, Holter monitor, and carotid ultrasound Social History - Smoker - Poor dietary habits with high consumpt ion of soda and coffee - Reported routine physical activity inc luding job-related physical exertion Review of Systems - Neurological: Reports dizziness and ne ar-fainting episodes. - Respiratory: Reports persistent cough for three weeks. - Musculoskeletal: Reports chronic back pain, especially in lower back region. - Cardiovascular: Reports episodes of li ghtheadedness without any chest pain. Physical Exam General: Well developed, well nourished, in no acute distress. Appears stated age. Cardiac: RRR, no murmurs. Presyncope episodes noted; cardiac workup planned including Holter monitor, stress test, and echocardiogram. Lungs: clear, equal breath sounds. Reports of crackles noted; advised to use inhaler more frequently. Abdomen: soft, nontender, no CVA tenderness. Kidney cysts noted on ultrasound; follow-up with urology planned. Extremities: no edema Neuro: alert, oriented x3, mood appropriate. Reports of dizziness and lightheadedness; orthostatic vitals to be checked. [facility] Medical History (Updated 09/16/24 @ 15:25 by Shea Burnham PA-C) Umbilical hernia Pancreatic cyst Joint pain Headache Erectile dysfunction Anxiety and depression Abnormal chest CT Surgical History (Updated 07/07/24 @ 16:09 by Amalia Sanchez CMA) H/O hemorrhoidectomy H/O: vasectomy Family History (Updated 07/08/24 @ 09:08 by Destiny Seay MA) Mother Liver disease Father Hx of CABG Prostate cancer Diabetes HTN (hypertension) Sister Cancer Social History (Updated 08/12/24 @ 11:00 by Amalia Sanchez CMA) Housing: House Alcohol intake: current Patient Tobacco Use Status: Current everyday Tobacco user Cigarette Packs Per Day: 2 Cigarettes Per Day: 30 e-Cigarette/Vaping Use: Never Used Second Hand Smoke Exposure: No service: No Current occupational status: employed Current occupational exposures/hazards: No Cognitive needs: No Hearing needs: Yes Vision needs: Yes Questionnaire Thrive Questionnaire Date Thrive assessed: 07/02/24 WILBER-7 AMB Questionnaire WILBER-7 Date WILBER - 7 assessed: 07/08/24 Source: Developed by Drs. Carlos Manuel Mckinley, Yudith Alvarado, Saeed White and colleagues, with an educational fan from [employer]. Physical exam (Primary Care) Vital Signs: Last Vital Signs Pulse 66 09/16/24 14:43 BP 118/68 09/16/24 14:43 Pulse Ox 99 09/16/24 14:43 Oxygen Delivery Method Room Air 09/16/24 14:43 BMI result Body Mass Index 20.2 Tobacco/Smoking Status: Tobacco use Status Tobacco use date assessed 07/08/24 09/16/24 14:41 Patient Tobacco Use Status Current everyday Tobacco 09/16/24 14:41 e-Cigarette/Vaping Use Never Used 09/16/24 14:41 Thrive Assessment: Date of Thrive Assessment Date Thrive assessed 07/02/24 09/16/24 14:41 Coding Level of Care Code Est Pt Level 5 (42924) Complex EM visit Add On G2211 Diagnoses Pre-syncope R55 Right-sided thoracic back pain M54.6 Lung infection J18.9 Chronic obstructive pulmonary disease with acute exacerbation J44.1 COPD type: COPD with acute exacerbation Assessment & Plan Assessment & Plan (1) Pre-syncope: Code(s): R55 - Syncope and collapse Category: Medical Plan: More than 1 hours spent in kbxf-ar-ytqj time today with the patient discussing the list of his concerns and a plan. EKG today in office normal sinus rhythm. EKG interpreted myself and Dr. John. Orthostatic WNL Labs ordered today. Carotid ultrasound ordered, stress test, Holter and echo ordered. (2) Right-sided thoracic back pain: Code(s): M54.6 - Pain in thoracic spine Category: Medical Plan: We will trial Zanaflex. Has upcoming appointment with physiatry. (3) Lung infection: Code(s): J18.9 - Pneumonia, unspecified organism Category: Medical Plan: We will start doxycycline. Discussed risks and benefits and adverse effects of this medication. Charissa Brewer ordered to use as needed as well. (4) COPD (chronic obstructive pulmonary disease): Code(s): J44.9 - Chronic obstructive pulmonary disease, unspecified Category: Medical Qualifiers: COPD type: COPD with acute exacerbation Qualified Code(s): J44.1 - Chronic obstructive pulmonary disease with (acute) exacerbation Plan: Monitor for COPD exacerbation. Currently stable. Orders: Orders Complete Blood Count Auto Diff Today R55 - Syncope and collapse TSH reflex Free T4 Today R55 - Syncope and collapse CA stress test Today R06.02 - Shortness of breath, R55 - Syncope and collapse CA echo transthoracic complete Today R06.02 - Shortness of breath, R55 - Syncope and collapse Comprehensive Met. Panel Today R55 - Syncope and collapse US carotid duplex BI Today R55 - Syncope and collapse ECG holter monitor 24 hour Today R06.02 - Shortness of breath, R55 - Syncope and collapse Medications: New tizanidine (Zanaflex) 4 mg PO Q8H PRN 30 caps 2RF muscle spasticity doxycycline hyclate 100 mg PO BID 20 tabs 0RF benzonatate 100 mg PO TID PRN 30 caps 0RF cough Discontinued cyclobenzaprine Discontinued Reason: Doctor's Order 10 mg PO TID PRN 30 tabs 0RF muscle spasm
[2024-09-16 14:43] VITALS: BP 118/68; PULSE 66; O2SAT 99; BMI 20.2
== END 2024-09-16 15:52 | disposition home or self-care (01) ==
LOC: HO.HMCFM 14:40
PROVIDERS: PCP Physician Assistant; Visit Provider Physician Assistant
DX: R55 Syncope and collapse (principal); M54.6 Pain in thoracic spine; J18.9 Pneumonia, unspecified organism; J44.1 Chronic obstructive pulmonary disease with (acute) exacerbation

== ENCOUNTER → 2024-09-16 14:40 | Outpatient (BNVA) | payer OTHER, SELFPAY | PROVIDERS: PCP Physician Assistant; Visit Provider Physician Assistant | DX: R55 Syncope and collapse (principal); M54.6 Pain in thoracic spine; J44.1 Chronic obstructive pulmonary disease with (acute) exacerbation; J44.0 Chronic obstructive pulmonary disease with (acute) lower respiratory infection; J18.9 Pneumonia, unspecified organism; N28.1 Cyst of kidney, acquired | CPT/HCPCS: 93005 ==

== ENCOUNTER 2024-09-16 15:54 | Outpatient (REF) | payer OTHER, SELFPAY ==
[2024-09-16 17:30] LABS: MANUAL DIFF FLAG NO
[2024-09-16 17:35] LABS: Basophils Absolute Auto 0.1 X10*3/uL (0.0-0.2); Basophils Percent Auto 0.7 % (0-2); Hematocrit 34.9 % (42.0-52.0); Hemoglobin 11.2 g/dl (14.0-18.0); Imm Gran Abs Auto 0.04 X10*3/uL (0.00-0.03); Imm Gran Pct Auto 0.3 % (0.0-0.4); Lymphocytes Absolute Auto 2.5 X10*3/uL (1.2-4.9); Lymphocytes Percent Auto 17.2 % (20-40); Mean Corpuscular HGB Conc 32.1 g/dl (31.0-36.0); Mean Corpuscular Hemoglobin 24.6 pg (27.0-33.0); Mean Corpuscular Volume 76.5 fL (80.0-98.0); Mean Platelet Volume 9.7 fL (9.4-12.4); Monocytes Absolute Auto 0.9 X10*3/uL (0.1-1.2); Neutrophils Absolute Auto 11.2 x10*3/uL (2.0-8.3); Neutrophils Percent Auto 75.8 % (45-73); Platelet Count 407 X10*3/uL (160-400); Red Blood Count 4.56 X10*6/uL (4.60-5.80); Red Cell Distribution Width 17.9 % (11.0-16.0); White Blood Count 14.7 X10*3/uL (4.8-10.8)
[2024-09-16 18:06] LABS: Alanine Aminotransferase 24 U/L (0-40); Albumin Level 4.2 g/dL (3.5-5.0); Alkaline Phosphatase 84 U/L (39-117); Anion Gap 10 (12-20); Aspartate Amino Transferase 23 U/L (5-37); Bilirubin Total 0.3 mg/dL (0.0-1.0); Blood Urea Nitrogen 16 mg/dL (9-16); Calcium 9.1 mg/dL (8.4-10.2); Carbon Dioxide 28 mmol/L (22-29); Chloride 105 mmol/L (96-108); Estimated Glomerular Filt Rate > 60; Glucose Random 79 mg/dL (60-115); Potassium 4.3 mmol/L (3.3-5.1); Sodium 139 mmol/L (135-145); Total Protein 7.1 g/dL (6.5-8.0)
[2024-09-16 18:20] LABS: TSH reflex Free T4 1.11 uIU/mL (0.32-4.0)
== END 2024-09-16 15:55 | disposition home or self-care (01) ==
LOC: HO.WFDLDS 15:54
PROVIDERS: Visit Provider Physician Assistant
DX: R55 Syncope and collapse (principal)
CPT/HCPCS: 36415; 80053; 84443; 85025

== ENCOUNTER 2024-09-30 14:43 | Outpatient (REF) | payer OTHER, SELFPAY ==
--- NOTE | ~2024-09-30 | US_ITS ---
EXAMINATION: US EXTRACRANIAL CAROTID DUPLEX, BILATERAL CLINICAL INFORMATION: Syncope and collapsed COMPARISON: None available. TECHNIQUE: Real-time ultrasound and Doppler techniques (integrating B-mode 2-D vascular images, Doppler spectral analysis and color-flow Doppler imaging) were utilized to interrogate the extracranial carotid arteries, the vertebral arteries and proximal subclavian arteries bilaterally. The degree of stenosis is determined by criteria similar to NASCET. FINDINGS: Right Side: 1. There is mild atherosclerotic plaque seen in the bifurcation/proximal ICA region. 2. The common carotid artery PSV proximally is 110 cm/s and distally 114 cm/s. 3. The proximal internal carotid artery velocities are 116 cm/s systolic and 103 cm/s diastolic. 4. The proximal external carotid artery PSV is 182 cm/s. 5. The vertebral artery shows antegrade flow. 6. The subclavian artery waveforms are triphasic. Left Side: 1. There is irregular atherosclerotic plaque seen in the bifurcation/proximal ICA region. 2. The common carotid artery PSV proximally is 144 cm/s and distally 118 cm/s. 3. The proximal internal carotid artery velocities are 97 cm/s systolic and 90 cm/s diastolic. 4. The proximal external carotid artery PSV is 203 cm/s. 5. The vertebral artery shows antegrade flow. 6. The subclavian artery waveforms are triphasic. US/US carotid duplex BI IMPRESSION: 1. RIGHT: No hemodynamically significant stenosis. 2. LEFT: No hemodynamically significant stenosis Electronically signed by: Sudheer Valle MD 10/06/2024 09:38 AM EST
== END 2024-09-30 14:44 | disposition home or self-care (01) ==
LOC: HO.US 14:43
PROVIDERS: PCP Physician Assistant; Visit Provider Physician Assistant
DX: R55 Syncope and collapse (principal)
CPT/HCPCS: 93880

== ENCOUNTER → 2024-09-30 14:44 | Outpatient (BNV) | payer OTHER, SELFPAY | PROVIDERS: PCP Physician Assistant; Visit Provider Radiology Diagnostic Radiology | DX: R55 Syncope and collapse (principal) | CPT/HCPCS: 93880 ==

== ENCOUNTER 2024-10-15 10:11 | Outpatient (AMB) | payer OTHER, SELFPAY ==
[2024-10-15 10:15] VITALS: BP 128/72; PULSE 80; O2SAT 98; BMI 20.8
--- NOTE | 2024-10-15 10:15 | A.OFFVIS_ITS ---
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 Forensic Nurse: Forensic Nurse offered & declined Accompanied by: Self / Same As Patient Allergies trazodone Allergy (Unknown, Verified 10/15/24 10:18) tremors Medication List - Last Reconciled 10/15/24 by Ursula Shannon LPN albuterol sulfate 90 mcg/actuation 2 puffs inhalation Q6H PRN benzonatate 100 mg PO TID PRN bupropion HCl XL (Wellbutrin XL) 150 mg PO QAM goxxtidajau-vcelwpiqs-osfhhjbc 200-62.5-25 mcg (Trelegy Ellipta) 1 ea inhalation DAILY hydroxyzine HCl 25 mg PO BEDTIME ibuprofen-diphenhydramine cit 200-38 mg (Advil PM) 3 caps PO BEDTIME omeprazole 40 mg PO DAILY sildenafil 100 mg PO DAILY PRN tizanidine (Zanaflex) 4 mg PO Q8H PRN HPI HPI COPD: Details: Cl is a pleasant 63-year-old female, current 2ppd smoker, with 60+ pack yea r history with underlying COPD. At baseline, he is well controlled on Trelegy and albuterol MDI PRN. Prior chest CT in 2021 which revealed emphysema and other findings suggestive of NSIP. He was sent for a chest CT at the last visit but unfortunately during the time patient had chest CT he had an excerbation and was treated with doxycycline. Since then, he feels his symptoms are back to baseline with dyspnea on moderate exertion and occasional dry cough. He denies chest tightess or wheezing. Patient also noted worsening memory, brain fog, nonrestorative sleep, daytime fatigue and frequent nocturnal awakenings. He was sent for a home sleep study and presents today to review results. Of note, patient will be undergoing stress test to assess for any cardiac contribution to dyspnea. [facility] Medical History (Updated 10/15/24 @ 13:32 by Josy Rushing NP) Umbilical hernia Pancreatic cyst Joint pain Headache Erectile dysfunction Anxiety and depression Abnormal chest CT Surgical History (Updated 07/07/24 @ 16:09 by Amalia Sanchez CMA) H/O hemorrhoidectomy H/O: vasectomy Family History (Updated 07/08/24 @ 09:08 by Destiny Seay MA) Mother Liver disease Father Hx of CABG Prostate cancer Diabetes HTN (hypertension) Sister Cancer Social History (Updated 08/12/24 @ 11:00 by Amalia Sanchez CMA) Housing: House Alcohol intake: current Patient Tobacco Use Status: Current everyday Tobacco user Cigarette Packs Per Day: 2 Cigarettes Per Day: 30 e-Cigarette/Vaping Use: Never Used Second Hand Smoke Exposure: No service: No Current occupational status: employed Current occupational exposures/hazards: No Cognitive needs: No Hearing needs: Yes Vision needs: Yes Review of Systems Const Denies chills, Denies excessive sweating, Denies fever(s), Denies headache(s) and Denies night sweats Eyes Denies dry eyes, Denies irritation and Denies itchy eyes ENT Reports Normal hearing present, Denies headache(s), Denies nasal congestion, Denies nasal discharge, Denies post nasal drip and Denies sore throat Card Denies chest pain, Denies chest pain at rest, Denies chest pain with activity, Denies claudication, Denies leg edema, Reports dyspnea on exertion, Denies orthopnea and Denies paroxysmal nocturnal dyspnea Resp Denies chest congestion, Reports cough, Denies excessive phlegm production, Denies pain on inspiration, Denies pain with cough, Reports dyspnea on exertion, Denies stridor and Denies wheezing Musc Denies myalgias Neuro Reports Normal hearing present and Denies headache(s) Endo Denies excessive sweating Xavier/Lymph Denies lymphadenopathy Aller/Immun Denies itchy eyes, Denies seasonal rhinorrhea and Denies wheezing Physical Exam Vital Signs: Last Vital Signs Pulse 80 10/15/24 10:15 BP 128/72 10/15/24 10:15 Pulse Ox 98 10/15/24 10:15 BMI result Body Mass Index 20.8 Const General: cooperative, healthy appearing, comfortable, no acute distress, well developed and alert Orientation/consciousness: patient oriented x3 Limitations: no limitations HEENT Head: Yes normal to inspection, Yes normocephalic and Yes atraumatic Ears: hearing grossly normal bilaterally and external ears normal Eyes General: appearance normal, both eyes and all related structures Eyelids: Yes eyelids normal Sclerae: sclerae normal EOM: EOMs intact bilaterally Neck Neck: Yes normal visual inspection and Yes no lymphadenopathy Lymphatic: no lymphadenopathy noted Chest Chest palpation & inspection: normal inspection of the chest Resp Effort & Inspection: normal respiratory effort, able to speak in complete sentences, no audible wheezes, no cough, no stridor, not tachypneic, no tripod positioning and no use of accessory muscles Auscultation: clear to auscultation bilaterally Cardio Jugular venous distension: no JVD Rate: regular rate Rhythm: regular rhythm Skin Other: warm, dry General skin exam: no rashes or lesions noted Neuro General: patient oriented x3 Cranial nerves: Yes Normal hearing present Cognition (Neuro): normal cognition Gait exam (Neuro): Normal gait present Extrem General: Yes normal to inspection, Yes capillary refill normal, Yes no clubbing, cyanosis or edema and Yes no pedal edema Psych Appearance: grossly normal and well kempt Speech and movement: Normal speech and movement present and Clear speech present Affect: normal affect Attitude: cooperative Thought process: Normal thought process present Thought content: Normal thought content present Insight: Good insight present (Psych) Judgement: Good judgement present (Psych) Results Reviewed Results Reviewed: [address] [address] [address] Scan Report Signed Patient: Cl Herbert MR#: [id number] : 1960 Acct:[id number] Age/Sex: 63 / M ADM Date: 09/10/24 Loc: .CT Attending Dr: Josy Rushing NP Ordering Physician: oJsy Rushing NP Date of Service: 09/10/24 Procedure(s): CT chest wo IV con Accession Number(s): [id number] cc: Josy Nix NP~ Report Number: [id number]: Total DLP = 119.00 mGy-cm EXAMINATION: CT CHEST WITHOUT IV CONTRAST INDICATION: R91.8 - Other nonspecific abnormal finding of lung field COMPARISON: Comparison is made with an outside chest CT dated 01/23/2022. TECHNIQUE: Helical CT scan of the chest was performed without intravenous contrast. Coronal and sagittal reformatted images were generated and reviewed. This CT exam was performed with one or more of the following dose reduction techniques: automated exposure control, adjustment of the mA and/or kV according to patient size, use of iterative reconstruction technique. DLP: 119 mGy-cm CHEST: THYROID: The thyroid is unremarkable. LUNGS:There are mild emphysematous changes at the lung apices to moderate emphysematous changes in the right lower lobe. There are multifocal irregularly shaped groundglass opacities scattered throughout both lungs without a significant zonal or lobar predilection. MEDIASTINUM: There is no mediastinal lymphadenopathy. FUENTES: Evaluation of the hilar regions is limited by lack of intravenous contrast material. CARDIOVASCULATURE: The heart is normal in size. There is no pericardial effusion. The thoracic aorta is normal in caliber. DEGREE OF CORONARY CALCIFICATION: mild PLEURA: There is no pleural effusion. No pneumothorax. MAIN AIRWAYS: The mainstem bronchi and proximal branches are patent. AXILLA: There is no axillary lymphadenopathy. BONES AND SOFT TISSUES: Unremarkable UPPER ABDOMEN: The visualized portions of the liver, spleen, and adrenals have an unremarkable appearance. CT/CT chest wo IV con IMPRESSION: Emphysematous changes. Multifocal irregularly shaped groundglass opacities scattered throughout both lungs. Findings could represent COVID pneumonitis in the appropriate clinical setting. Other inflammatory disorders could also have this appearance as well as neoplasm. Clinical correlation and follow-up are recommended. Please note that while this study was performed on 09/10/2024, it is only now submitted for interpretation, on 10/13/2024. Electronically signed by: Carlos Manuel Gaitan MD 10/13/2024 10:45 AM EST Dictated By: Carlos Manuel Gaitan MD Signed By: <Electronically signed by Carlos Manuel Gaitan MD in OV> 10/13/24 1045 DD/ 1342 TD/TT: 09/10/24 1407 Electrical Subcontractor: Assessment & Plan Assessment & Plan (1) COPD (chronic obstructive pulmonary disease): Code(s): J44.9 - Chronic obstructive pulmonary disease, unspecified Category: Medical Qualifiers: COPD type: COPD with acute exacerbation Qualified Code(s): J44.1 - Chronic obstructive pulmonary disease with (acute) exacerbation (2) Smoker: Code(s): F17.200 - Nicotine dependence, unspecified, uncomplicated Category: Social Hx (3) Multiple pulmonary nodules: Code(s): R91.8 - Other nonspecific abnormal finding of lung field Category: Medical Plan Reviewed home sleep study which revealed an AHI of 5.6 revealing mild OWEN with recommendations for conservative measures at this time which patient was agreeable to. Reviewed chest CT which revealed multifocal irregularly shaped groundglass opacities scattered throughout both lungs, which patient reported URI sx at this time. Will repeat chest CT in 4-6 weeks to assess for resolution of ggo. At this time, patient doing well on current regimen of Trelegy and albuterol MDI, encouraged to continue. Smoking cessation reviewed and patient has trialed NRT, Chantix as well as Wellbutrin with either adverse effects or suboptimal response. Discussed possible hypnosis. All questions were answered and patient is in agreement of plan. Will follow-up to review chest CT results or sooner if needed. Orders: Orders CT chest wo IV con 5 Weeks R91.8 - Other nonspecific abnormal finding of lung field Coding Level of Care Code Est Pt Level 4 (86827) Diagnoses Chronic obstructive pulmonary disease with acute exacerbation J44.1 COPD type: COPD with acute exacerbation Smoker F17.200 Multiple pulmonary nodules R91.8
== END 2024-10-15 10:37 | disposition home or self-care (01) ==
PROVIDERS: PCP Physician Assistant; Visit Provider Nurse Practitioner Family
DX: J44.1 Chronic obstructive pulmonary disease with (acute) exacerbation (principal); F17.200 Nicotine dependence, unspecified, uncomplicated; R91.8 Other nonspecific abnormal finding of lung field
CPT/HCPCS: 99214

== ENCOUNTER → 2024-10-22 07:52 | Outpatient (REF) | payer OTHER, SELFPAY ==
--- NOTE | 2024-10-22 07:57 | CA_ITS ---
Transthoracic Echocardiogram Patient (Last, First, Middle): Cl Herbert D Gender: Male Date of : 1960 Age: 63 Procedure Date: 10/22/2024 Procedure Type: Transthoracic Echocardiogram Location: OP Height: 185.42 cm Weight: 71.67 kg BSA: 1.95 m2 Heart Rate: 57 bpm BP: 128 / 72 mmHg Black Belt: ABHISHEK Referring MD: Shea Burnham PA-C Manager Flight: Joaquín Gray MD Symptoms: R55 - Syncope and collapse Study Quality: Adequate ECG Rhythm: Bradycardia Conclusions: - 1. Normal LV ejection fraction 55-60% 2. Normal cardiac valvular Dopplers 3. No gross pericardial effusion Findings Left Ventricle Normal left ventricular size, thickness, and systolic function. The visually estimated ejection fraction is between 55-60%. Spectral Doppler is indicative of a normal filling pattern. Right Ventricle Normal right ventricular cavity size and systolic function. Atria Both atria are normal in size. There is no evidence of interatrial shunt. Aortic Valve The aortic valve structure and function is likely normal. There is no aortic valve stenosis. There is no aortic valve regurgitation. Mitral Valve Likely normal mitral valve structure and function. There is trace mitral valve regurgitation. There is no mitral valve stenosis. Pulmonic Valve The pulmonic valve was not well visualized. Tricuspid Valve The tricuspid valve was not well visualized. Tricuspid regurgitation envelope is inadequate for calculation of right ventricular systolic pressure. Normal right atrial pressure. Great Vessels The pulmonary artery was not well visualized. There is no dilatation of the ascending aorta measuring 3.30 cm. Venous The inferior vena cava is normal in size and collapses greater than 50% with inspiration. Pericardium/Pleural There is no evidence of pericardial effusion. Prior Study Comparison No prior study available for comparison. Measurements 2D Linear Measurements IVSd: 0.78 0.6-0.9/0.6-1.0 cm LVIDd: 5.63 3.9-5.3/4.2-5.9 cm LVIDd Index: 2.89 2.4-3.2/2.2-3.1 cm/m2 LVIDs: 3.93 2.0-3.6 cm LVPWd: 0.74 0.7-1.1 cm Ao Root: 3.30 2.1-3.5 cm LA Diam: 3.40 2.7-3.8/3.0-4.0 cm LAIDs Index: 1.74 1.5-2.3 cm/m2 LV Mass: 194.24 67-162/88-224 g LV Mass Index: 99.61 43-95/49-115 g/m2 LVOT Diam: 2.30 3.0+(-)1.3 cm 2D Systolic Function EF 4C: 55.70 >55% EF 2C: 53.10 >55% EF BiP: 55.40 >55% Mitral Valve MV Pk E: 0.78 MV PK A: 0.81 MV Decel Time: 234.00 E/A: 1.00 E'Lateral: 8.59 E'Medial: 7.40 E/E' Med: 10.50 E/E' Lat: 9.00 PHT: 69.00 MVA PHT: 3.19 [place]: 3.32 Aortic Valve AoV Pk Kaden: 1.24 AoV Pk Grad: 6.00 CAILIN: 3.12 LVOT LVOT Pk Kaden: 0.91 LVOT Mn Kaden: 0.64 LVOT VTI: 0.21 LVOT Pk Grad: 3.00 LVOT Mn Grad: 2.00 LVOT Diam: 2.30 LVOT Area: 4.15 Diastolic Function MV Pk E: 0.78 MV Pk A: 0.81 E/A: 1.00 E'Medial: 7.40 E/E' Med: 10.50 E' Laterial: 8.59 E/E' Lat: 9.00 Right Ventricle TAPSE (mm): 23.50 TVS' Kaden: 15.00 Great Vessels Aorta Ao Root-2D: 3.30 2.0-3.7 cm Ao Asc: 3.30 2.1-3.4 cm Ao Arch: 2.70 Pulmonary Valve PV Pk Kaden: 0.99 Peak PV Grad: 4.00 Updated in Other Vendor System with Status of Final Joaquín Gray MD electronically signed on 10/22/2024 1:27:24 PM with status of Final
--- NOTE | 2024-10-22 07:57 | CA_ITS ---
Acquisition Time: 2024-10-22 09:02:03 Total Exercise Time: 00:07:32 Test Indications: Dyspnea PRE SYNCOPE Medications: SEE H&P Protocol: MARIA ELENA Max HR: 136 BPM 86% of Pred: 158 BPM Max BP: 166/92 mmHG Max Work Load: 9.3 METS Exercise Stress Test with exercise 7 mins 32 secs of Maria Elena Protocol, with reports of severe SOB, no chest discomfort, with isolated PAC, with nomortensive response to exercise. Without EKG changes meeting criteria for ischemia. In recovery, breathing returned to baseline. Test reviewed with . Referred By: Shea Burnham Electronically Signed By: Carlos Salas
== END ==
LOC: HO.CARD 07:52
PROVIDERS: PCP Physician Assistant; Visit Provider Physician Assistant
DX: R55 Syncope and collapse (principal); R06.02 Shortness of breath
CPT/HCPCS: 93017; 93225; 93306

== ENCOUNTER → 2024-10-22 07:57 | Outpatient (BNV) | payer OTHER, SELFPAY | PROVIDERS: PCP Physician Assistant | DX: R55 Syncope and collapse (principal); R06.02 Shortness of breath; I49.1 Atrial premature depolarization | CPT/HCPCS: 93016; 93018; 93320; 93325; 93350 ==

== ENCOUNTER 2024-11-09 10:43 | Outpatient (AMB) | payer OTHER, SELFPAY ==
--- NOTE | 2024-11-09 11:13 | MHC.OFFVIS ---
Intake Visit Reasons: bilateral renal cysts Intake Note: New Patient presents for initial visit for renal cysts Urology Medications: sildenafil Blood Thinner: none Zigzag Topstitcher Required: No Accompanied by: Self / Same As Patient Allergies trazodone Allergy (Unknown, Verified 11/09/24 11:45) tremors Medication List - Last Reviewed 11/09/24 by Melissa Scherer albuterol sulfate 90 mcg/actuation 2 puffs inhalation Q6H PRN bupropion HCl XL (Wellbutrin XL) 150 mg PO QAM xnrrfmpitfo-tahwxnxlz-zphzeteh 200-62.5-25 mcg (Trelegy Ellipta) 1 ea inhalation DAILY hydroxyzine HCl 25 mg PO BEDTIME ibuprofen-diphenhydramine cit 200-38 mg (Advil PM) 3 caps PO BEDTIME omeprazole 40 mg PO DAILY sildenafil 100 mg PO .PRN PRN 30 days tizanidine (Zanaflex) 4 mg PO Q8H PRN HPI Comments Details: Cl Zhao is a very pleasant 63-year-old male patient of Dr. Burnham. He has a past medical history of umbilical hernia, pancreatic cysts, COPD, headaches, ED, anxiety, and depression. He presents to the office today as a new patient for renal cysts. In discussion with the patient today he reports having had a recent renal ultrasound at which time recommendations were made for urology referral for further assessment evaluation. These results were reviewed with the patient today. 09/21 bilateral kidneys are normal in size, contour, and echogenicity. No hydronephrosis noted bilaterally. Bilateral renal cysts are noted. Right side 1.2 cm. Left side 1 cm. Question punctate calcification in the left kidney. The bladder is fluid-filled. Bilateral ureteral jets are demonstrated. Pre void bladder volume is approximately 130 mL. Postvoid bladder volume is approximately 5 mL. Prostate gland measures 22 mls. We discussed at length potential causes of renal cysts as well as classifications of renal cysts. We discussed surveillance monitoring. When asked he denies any bothersome lower urinary tract symptoms. He denies urinary urgency, urinary frequency, incontinence, nocturia, hematuria, dysuria, foul smelling urine, changes to urinary stream, flank pain, fever, and or chills. He is happy with his current voiding parameters. In office urinalysis results reviewed with the patient today. He does report being on p.r.n. Viagra and feels this is helpful in maintaining his erections and is requesting a refill. He otherwise offers no other issues or concerns at this time. [facility] Medical History Umbilical hernia Pancreatic cyst Joint pain Headache Erectile dysfunction Anxiety and depression Abnormal chest CT Surgical History (Updated 07/07/24 @ 16:09 by Amalia Sanchez CMA) H/O hemorrhoidectomy H/O: vasectomy Family History (Updated 07/08/24 @ 09:08 by Destiny Seay MA) Mother Liver disease Father Hx of CABG Prostate cancer Diabetes HTN (hypertension) Sister Cancer Social History (Updated 08/12/24 @ 11:00 by Amalia Sanchez CMA) Housing: House Alcohol intake: current Patient Tobacco Use Status: Current everyday Tobacco user Cigarette Packs Per Day: 2 Cigarettes Per Day: 30 e-Cigarette/Vaping Use: Never Used Second Hand Smoke Exposure: No service: No Current occupational status: employed Current occupational exposures/hazards: No Cognitive needs: No Hearing needs: Yes Vision needs: Yes Review of Systems Const All systems reviewed & are unremarkable except as noted in HPI and below Physical Exam Const General: cooperative, healthy appearing, comfortable, no acute distress, well developed, alert and awake Orientation/consciousness: patient oriented x3 Limitations: no limitations HEENT Head: Yes normal to inspection, Yes normocephalic and Yes atraumatic Ears: hearing grossly normal bilaterally Eyes General: appearance normal, both eyes and all related structures Neck Neck: Yes normal visual inspection and Yes trachea midline Chest Chest palpation & inspection: normal inspection of the chest Resp Effort & Inspection: normal respiratory effort and able to speak in complete sentences Cardio Rate: regular rate GI Inspection: Yes normal to inspection General: Yes no CVA tenderness Back/Spine/Pelvis Back: no CVA tenderness Skin General skin exam: no rashes or lesions noted Neuro General: patient oriented x3 Extrem General: Yes normal to inspection Psych Appearance: grossly normal and well kempt Mental Status: mental status grossly normal Speech and movement: Normal speech and movement present and Clear speech present Affect: normal affect Attitude: cooperative Thought process: Normal thought process present Thought content: Normal thought content present Insight: Fair insight present (Psych) Judgement: Fair judgement present (Psych) Results AMB Urinalysis, Automated UA Leukoctes 0 Neda/uL Last Edit by Melissa Scherer on 11/09/24 11:53 UA Nitrite Last Edit by Melissa Scherer on 11/09/24 11:53 UA Urobilinogen 0.2 mg/dL Last Edit by Melissa Scherer on 11/09/24 11:53 UA Protein 15 mg/dL Last Edit by Melissa Scherer on 11/09/24 11:53 UA pH 6.0 Last Edit by Melissa Scherer on 11/09/24 11:53 UA Blood 0 Dorian/uL Last Edit by Melissa Scherer on 11/09/24 11:53 UA Specific [place] 1.030 Last Edit by Melissa Scherer on 11/09/24 11:53 UA Ketone Last Edit by Melissa Scherer on 11/09/24 11:53 UA Bilirubin 0 mg/dL Last Edit by Melissa Scherer on 11/09/24 11:53 UA Glucose 0 mg/dL Last Edit by Melissa Scherer on 11/09/24 11:53 Results Reviewed Results Reviewed: Date of Service: 08/31/24 EXAMINATION: US RETROPERITONEAL COMPLETE (RENAL) FINDINGS: Submitted for interpretation on September 10, 2024. RIGHT KIDNEY: 11 x 5 x 6 cm (SAG x AP x TRV). The kidney is normal in size, contour, and echogenicity. Renal cortical thickness is normal. No renal calculi or hydronephrosis. There is a 1.2 cm anechoic lesion in the upper pole without flow on color Doppler interrogation. There is flow on color Doppler interrogation of the renal hilum. LEFT KIDNEY: 11 x 6 x 5 cm (SAG x AP x TRV). The kidney is normal in size, contour, and echogenicity. Renal cortical thickness is normal. No renal calculi or hydronephrosis. There is a 1 cm anechoic lesion at the corticomedullary junction midportion. No flow on color Doppler interrogation. Questionable punctate calcification. There is flow on color Doppler interrogation of the renal hilum. BLADDER: Fluid-filled. Bilateral ureteral jets are demonstrated. Prevoid bladder volume is 127.0 mL. Postvoid bladder volume is 5 mL. PROSTATE GLAND: The prostate volume is 22 mL. IMPRESSION: No hydronephrosis. No residual amount of urine in a post void image. Bilateral renal cysts. Questionable nonobstructing calculus left kidney. Assessment & Plan Assessment & Plan (1) Erectile dysfunction: Code(s): N52.9 - Male erectile dysfunction, unspecified Category: Medical Qualifiers: Erectile dysfunction type: unspecified Qualified Code(s): N52.9 - Male erectile dysfunction, unspecified Plan In office urinalysis results reviewed the patient today; as noted above. Recent retroperitoneal ultrasound results with the patient today; as noted above. Refill provided on Viagra. Will obtain PSA for further assessment evaluation. Patient currently denies any bothersome urinary issues or concerns. He reports be happy with current voiding parameters. We discussed at length renal cysts and classifications of renal cysts. Will continue with surveillance monitoring. Will obtain renal ultrasound in 6 months. Follow-up in 6 months with imaging and PSA; or sooner with any issues, concerns, and or questions. Orders: Orders AMB Urinalysis Automated Today Z13.9 - Encounter for screening, unspecified Prostate Specific Antigen Today N52.9 - Male erectile dysfunction, unspecified Medications: Changed From sildenafil 100 mg PO DAILY PRN 30 tabs 0RF sexual activity To sildenafil BIN N Group [facility] DR33 [id number] Not to exceed more than 3 times per week 100 mg PO .PRN 30 days PRN 14 tabs 0RF sexual activity Patient Instructions: The patient had an opportunity to ask questions regarding the treatment plan. All questions were answered. Physical exam, labs, and imaging were discussed and reviewed in detail. As well as risks, benefits, and discussion of treatment choices. No major barriers to understanding were identified. The patient expressed understanding and agreement with the above treatment plan. The patient was made aware they should contact our office by phone for worsening of their current condition, the appearance of new symptoms, or with any questions or concerns. Compliance is encouraged with any medications and follow up testing that is ordered. It is a privilege to be allowed the opportunity to participate in? your urological care.? Again, if you have any questions or concerns If you have any questions or concerns please do not hesitate to contact me. The office is [phone]. This note is constructed using voice recognition software. While every effort has been made to ensure accuracy tape coater errors may have been included. Yours sincerely, ZACHERY Vidales Coding Level of Care Code New Pt Level 4 (33490) Diagnoses Erectile dysfunction, unspecified erectile dysfunction type N52.9 Erectile dysfunction type: unspecified
== END 2024-11-09 11:40 | disposition home or self-care (01) ==
PROVIDERS: PCP Physician Assistant; Visit Provider Nurse Practitioner Family
DX: Z13.9 Encounter for screening, unspecified (principal); N52.9 Male erectile dysfunction, unspecified
CPT/HCPCS: 99204

== ENCOUNTER → 2024-11-09 10:43 | Outpatient (BNVA) | payer OTHER, SELFPAY | PROVIDERS: PCP Physician Assistant; Visit Provider Nurse Practitioner Family | DX: N52.9 Male erectile dysfunction, unspecified (principal) | CPT/HCPCS: 81003 ==

== ENCOUNTER 2024-11-11 14:41 | Outpatient (REF) | payer OTHER, SELFPAY | END 2024-11-11 14:42 | disposition home or self-care (01) | LOC: HO.BBR 14:41 | PROVIDERS: PCP Physician Assistant; Visit Provider Hospitalist | DX: Z13.89 Encounter for screening for other disorder (principal) ==

== ENCOUNTER 2024-11-18 08:43 | Outpatient (AMB) | payer OTHER, SELFPAY ==
--- NOTE | 2024-11-18 08:51 | MHC.PC.OV ---
Vital Signs 11/18/24 08:55 Height 6 ft 1 in Weight 162 lb 8 oz BMI 21.4 BP 108/72 Blood Pressure Location Rt brachial Position Sitting Respiration 14 Pulse 55 Pulse Source Pulse Oximeter Pulse Oximetry (%) 99 Oxygen Delivery Method Room Air Intake Visit Reasons: f/u Intake Note: Follow up Network Support Engineer Required: No Allergies trazodone Allergy (Unknown, Verified 11/18/24 08:51) tremors Tobacco use date assessed: 11/18/24 Dental Screening Dental Screen Date: 07/08/24 HPI f/u HPI Details Patient is a 63-year-old male with a significant past medical history of anxiety, depression, COPD, abnormal chest CT, fatigue and chronic pain presenting today for a follow up. He was seen recently for presyncope symptoms, exacerbation of shortness a breath with exertion and a COPD exacerbation he was started on doxycycline which he states resolved his cough. He states that he has not had anymore episodes of feeling like he could faint. PULM: Had a recent sleep study. Following pulmonology for his abnormal chest CT , COPD and shortness a breath with exertion. He has returned back to his baseline and is still working on smoking cessation. He is on Trelegy and albuterol as needed. He needs a new CT next week. Waiting to have this booked CV: Given the presyncope in the [place] he had a workup in had a negative stress test, reassuring Holter and echo. He was also referred to Cardiology for evaluation given his severe shortness a breath on the treadmill. Blood pressure today in the office is 108/72. His last cholesterol was slightly elevated with an LDL of 122. He is managing this with diet. Musculoskeletal: following with physiatry for back pain. He finds Zanaflex helpful. He also uses ibuprofen intermittently. GI: He was following with GI for GERD and his pancreatic cyst given his family history of pancreatic cancer. He states he had imaging about a year ago which showed stable findings. He is supposed to be followed Psych: On Wellbutrin 150 mg daily. He takes hydroxyzine as needed at night. Heme: He is following with hematology for hemochromatosis q 3 months. Uro: follows with [facility] for prostate checks and ED. [facility] Medical History Umbilical hernia Pancreatic cyst Joint pain Headache Erectile dysfunction Anxiety and depression Abnormal chest CT Surgical History H/O hemorrhoidectomy H/O: vasectomy Family History Mother Liver disease Father Hx of CABG Prostate cancer Diabetes HTN (hypertension) Sister Cancer Social History Housing: House Alcohol intake: current Patient Tobacco Use Status: Current everyday Tobacco user Cigarette Packs Per Day: 2 Cigarettes Per Day: 30 e-Cigarette/Vaping Use: Never Used Second Hand Smoke Exposure: No service: No Current occupational status: employed Current occupational exposures/hazards: No Cognitive needs: No Hearing needs: Yes Vision needs: Yes Questionnaire PHQ-9 Over the last 2 weeks, how often have you been bothered by any of the following problems? 1. Little interest or pleasure in doing things: not at all 2. Feeling down, depressed, or hopeless: not at all 3. Trouble falling or staying asleep, or sleeping too much: not at all 4. Feeling tired or having little energy: not at all 5. Poor appetite or overeating: not at all 6. Feeling bad about yourself - or that you are a failure or have let yourself or your family down: not at all 7. Trouble concentrating on things, such as reading the newspaper or watching television: not at all 8. Moving or speaking so slowly that other people could have noticed. Or the opposite - being so fidgety or restless that you have been moving around a lot more than usual: not at all 9. Thoughts that you would be better off or of hurting yourself in some way: not at all Total score: 0 Depression Screening Interpretation: Negative Depression Screening Done: Yes 67204 - PHQ-9 Billing: Yes Source: Developed by Drs. Carlos Manuel Mckinley, Yudith Alvarado, Saeed White and colleagues, with an educational fan from [employer]. Thrive Questionnaire Date Thrive assessed: 07/02/24 I am a: Patient What is your living situation today?: I have a steady place to live Within the past 12 months, did the food you bought not last and you didn't have the money to get more?: Never true Within the past 12 months, did you worry whether your food would run out before you got money to buy more?: Never true Do you have trouble paying for medicines?: No Do you have trouble getting transportation to medical appointments?: No Do you have trouble paying your heating and electricity bill?: No Do you have trouble taking care of your child, family member or friend?: No Do you have trouble with day-to-day activities such as bathing, preparing meals, shopping, managing finances, etc.?: No Are you currently unemployed and looking for a job?: No Are you interested in more education?: No Please select the resources that you would like help with: None Currently or been in a relationship where the following occur: No concerns reported THRIVE Score: 0 AUDIT C Alcohol Use Questionnaire (AUDIT-C) 1. How often do you have a drink containing alcohol?: 2-3 times a week 2. How many drinks containing alcohol do you have on a typical day when you are drinking?: 1 or 2 3. How often do you have six or more drinks on one occasion?: Never Total Score: 3 WILBER-7 AMB Questionnaire WILBER-7 Date WILBER - 7 assessed: 07/08/24 Feeling nervous, anxious, or on edge: 0 = Not at all Not being able to stop or control worryin = Not at all Worrying too much about different things: 0 = Not at all Trouble relaxin = Not at all Being so restless that it is hard to sit still: 0 = Not at all Becoming easily annoyed or irritable: 0 = Not at all Feeling afraid as if something awful might happen: 0 = Not at all Total WILBER-7 score (0-4 normal; 5-9 mild; 10-14 moderate; 15-21 severe): 0 Source: Developed by Drs. Carlos Manuel Mckinley, Yudith Alvarado, Saeed White and colleagues, with an educational fan from [employer]. WILBER-7 Assessment Billing WILBER-7 Assessment Tool: WILBER-7 Assessment 31676 Physical exam (Primary Care) Tobacco/Smoking Status: Tobacco use Status Tobacco use date assessed 07/08/24 09/16/24 14:41 Patient Tobacco Use Status Current everyday Tobacco 09/16/24 14:41 e-Cigarette/Vaping Use Never Used 09/16/24 14:41 Depression Screening Interpretation: Negative Thrive Assessment: Date of Thrive Assessment Date Thrive assessed 07/02/24 09/16/24 14:41 Currently or been in a relationship where the following occur: No concerns reported Const Orientation/consciousness: patient oriented x3 HENMT Ears: hearing grossly normal bilaterally Neck Thyroid: Thyroid normal Lymphatic: no lymphadenopathy noted Resp Auscultation: clear to auscultation bilaterally Cardio Rate: regular rate Rhythm: regular rhythm Heart sounds: S1 normal heart sound present and S2 normal heart sound present GI Inspection: Yes normal to inspection Palpation (GI): Soft to palpation and Other GI palpation findings present (nontender, no cva tenderness) Auscultation: normoactive bowel sounds Rectal Exam - Male: Yes deferred Skin General skin exam: no rashes or lesions noted Neuro General: patient oriented x3, gait normal and no focal motor deficits Results Reviewed Results Reviewed: Conclusion: 1. Patient was monitored for total period of 1 day and 2 hours 2. Baseline was normal sinus rhythm with average heart of 69 beats per minute 3. No significant pauses noted but frequent sinus bradycardia noted with 45% of the time heart rate below 60 beats per minute 4. Rare PACs noted 5. No patient reported events Exercise Stress Test with exercise 7 mins 32 secs of Luis Protocol, with reports of severe SOB, no chest discomfort, with isolated PAC, with nomortensive response to exercise. Without EKG changes meeting criteria for ischemia. In recovery, breathing returned to baseline. Test reviewed with . Conclusions: - 1. Normal LV ejection fraction 55-60% 2. Normal cardiac valvular Dopplers 3. No gross pericardial effusion US/US carotid duplex BI IMPRESSION: 1. RIGHT: No hemodynamically significant stenosis. 2. LEFT: No hemodynamically significant stenosis Laboratory Tests 07/08/24 09/16/24 10:06 15:55 Sodium 139 139 Potassium 4.8 4.3 Chloride 105 105 Carbon Dioxide 28 28 Anion Gap 11 L 10 L BUN 22 H 16 Creatinine 0.96 0.92 Estimated GFR > 60 > 60 Random Glucose 78 79 Calcium 9.1 Total Bilirubin 0.3 AST 23 ALT 24 Alkaline Phosphatase 84 Total Protein 7.1 Albumin 4.2 Triglycerides 132 Cholesterol 211 H LDL Cholesterol, Calc 122 H HDL Cholesterol 63 TSH 1.15 1.11 Coding Level of Care Code Est Pt Level 4 (55909) Complex EM visit Add On G2211 Diagnoses Pancreatic cyst K86.[address] R93.89 Chronic lumbar pain M54.50; G89.29 Smoker F17.200 Additional Codes PHQ-9 - 85306 - PHQ-9 Billing: Yes ([id number]) WILBER-7 Assessment Billing - WILBER-7 Assessment Tool: WILBER-7 Assessment [id number] ([id number]) Assessment & Plan Assessment & Plan (1) Pancreatic cyst: Code(s): K86.2 - Cyst of pancreas Category: Medical Plan: Advised patient that he needs to make sure he continues to follow up with GI. He has a family history of pancreatic cancer with his father passing from this. (2) Abnormal chest CT: Code(s): R93.89 - Abnormal findings on diagnostic imaging of other specified body structures Category: Medical Plan: He we will have repeat imaging. He is being managed by pulmonology (3) Chronic lumbar pain: Code(s): M54.50 - Low back pain, unspecified; G89.29 - Other chronic pain Category: Medical Plan: Has an appointment again on Friday with physiatry. Has been doing 5 weeks of PT. Feels that he gets some relief with the muscle relaxant. (4) Smoker: Code(s): F17.200 - Nicotine dependence, unspecified, uncomplicated Category: Medical Plan: Does not want to quit smoking yet. Orders: Referrals Gastroenterology Referral K86.2 - Cyst of pancreas Patient Instructions: call [facility] GI for following the pancreatic cyst
[2024-11-18 08:55] VITALS: BP 108/72; PULSE 55; RESP 14; O2SAT 99; BMI 21.4
== END 2024-11-18 09:16 | disposition home or self-care (01) ==
PROVIDERS: PCP Physician Assistant; Visit Provider Physician Assistant
DX: K86.2 Cyst of pancreas (principal); R93.89 Abnormal findings on diagnostic imaging of other specified body structures; M54.50 Low back pain, unspecified; G89.29 Other chronic pain; F17.200 Nicotine dependence, unspecified, uncomplicated

== ENCOUNTER → 2024-11-18 08:43 | Outpatient (BNVA) | payer OTHER, SELFPAY | PROVIDERS: PCP Physician Assistant; Visit Provider Physician Assistant | DX: K86.2 Cyst of pancreas (principal); R93.89 Abnormal findings on diagnostic imaging of other specified body structures; G89.29 Other chronic pain; M54.50 Low back pain, unspecified; J44.9 Chronic obstructive pulmonary disease, unspecified; F17.210 Nicotine dependence, cigarettes, uncomplicated | CPT/HCPCS: 96127 ==

== ENCOUNTER 2025-05-05 08:28 | Outpatient (AMB) | payer OTHER, SELFPAY ==
--- NOTE | 2025-05-05 08:33 | MHC.PC.OV ---
Vital Signs 05/05/25 08:35 05/05/25 08:38 Height 6 ft 1 in Weight 160 lb 8 oz BMI 21.2 BP 152/86 H 156/82 H Blood Pressure Location Lt brachial Lt femoral Position Sitting Sitting Respiration 14 Pulse 60 Pulse Source Pulse Oximeter Temp 97.6 F Temp Source Oral Pulse Oximetry (%) 98 Oxygen Delivery Method Room Air Intake Visit Reasons: meds. labs review Intake Note: Follow up Tour Counselor Required: No Allergies trazodone Allergy (Unknown, Verified 11/18/24 08:51) tremors Tobacco use date assessed: 05/05/25 Dental Screening Dental Screen Date: 05/05/25 Did you have a dental visit in the last 12 months?: Yes Did you have a dental problem in the last 6 months where you did not have access to dental care?: No Was dental information given to patient?: Patient has dentist HPI meds. labs review HPI Details Patient is a 64-year-old male with a significant past medical history of anxiety, depression, COPD, abnormal chest CT, fatigue and chronic pain presenting today for a follow up. PULM: Had a recent sleep study. Following pulmonology for his abnormal chest CT , COPD and shortness a breath with exertion. He states his shortness on breath is still at its baseline and he has not quit smoking yet. He smokes about a pack a day. He is on Trelegy and albuterol as needed. He was supposed to get a chest CT done in October/November but never got this done. He has not had any COPD exacerbations recently. CV: Given the presyncope in the [place] he had a workup in had a negative stress test, reassuring Holter and echo. He was also referred to Cardiology for evaluation given his severe shortness a breath on the treadmill but never followed up. He states his heart feels ?fine ?.. Blood pressure today in the office is 156/82. It is higher than what it has been in the past and he states it is normally normal. His last cholesterol was slightly elevated with an LDL of 122. He is managing this with diet. Musculoskeletal: following with physiatry for back pain. He finds Zanaflex helpful. He also uses ibuprofen intermittently. GI: He was following with [facility] for GERD and his pancreatic cyst given his family history of pancreatic cancer. He states he went back to them a few months ago. Psych: On Wellbutrin 150 mg daily. He takes hydroxyzine as needed at night. Heme: He is following with [facility] hematology but states that he has not been seen in awhile. He states that his doctor at [facility] left and he thinks that he has been lost to follow up. He has been scheduled at our blood bank but states that he often forgets about this Uro: follows with jose for prostate checks, renal cysts and ED. -he missed his renal u/s appointment and just rebooked for May. [facility] Medical History Umbilical hernia Pancreatic cyst Joint pain Headache Erectile dysfunction Anxiety and depression Abnormal chest CT Surgical History H/O hemorrhoidectomy H/O: vasectomy Family History Mother Liver disease Father Hx of CABG Prostate cancer Diabetes HTN (hypertension) Sister Cancer Social History Housing: House Alcohol intake: current Patient Tobacco Use Status: Current everyday Tobacco user Cigarette Packs Per Day: 2 Cigarettes Per Day: 30 e-Cigarette/Vaping Use: Never Used Second Hand Smoke Exposure: No service: No Current occupational status: employed Current occupational exposures/hazards: No Cognitive needs: No Hearing needs: Yes Vision needs: Yes Questionnaire Thrive Questionnaire Date Thrive assessed: 11/18/24 I am a: Patient What is your living situation today?: I have a steady place to live Within the past 12 months, did the food you bought not last and you didn't have the money to get more?: Never true Within the past 12 months, did you worry whether your food would run out before you got money to buy more?: Never true Do you have trouble paying for medicines?: No Do you have trouble getting transportation to medical appointments?: No Do you have trouble paying your heating and electricity bill?: No Do you have trouble taking care of your child, family member or friend?: No Do you have trouble with day-to-day activities such as bathing, preparing meals, shopping, managing finances, etc.?: No Are you currently unemployed and looking for a job?: No Are you interested in more education?: No Please select the resources that you would like help with: None Currently or been in a relationship where the following occur: No concerns reported THRIVE Score: 0 AUDIT C Alcohol Use Questionnaire (AUDIT-C) 1. How often do you have a drink containing alcohol?: Never 3. How often do you have six or more drinks on one occasion?: Never Total Score: 0 WILBER-7 AMB Questionnaire WILBER-7 Date WILBER - 7 assessed: 07/08/24 Source: Developed by Drs. Carlos Manuel Mckinley, Yudith Alvarado, Saeed White and colleagues, with an educational fan from [employer]. Physical exam (Primary Care) Vital Signs: Last Vital Signs Temp 97.6 F 05/05/25 08:35 Pulse 60 05/05/25 08:35 Resp 14 05/05/25 08:35 BP 156/82 H 05/05/25 08:38 Pulse Ox 98 05/05/25 08:35 Oxygen Delivery Method Room Air 05/05/25 08:35 BMI result Body Mass Index 21.2 Tobacco/Smoking Status: Tobacco use Status Tobacco use date assessed 05/05/25 05/05/25 08:39 Patient Tobacco Use Status Current everyday Tobacco 05/05/25 08:39 e-Cigarette/Vaping Use Never Used 05/05/25 08:39 Thrive Assessment: Date of Thrive Assessment Date Thrive assessed 11/18/24 05/05/25 08:39 Currently or been in a relationship where the following occur: No concerns reported Const Orientation/consciousness: patient oriented x3 HENMT Ears: hearing grossly normal bilaterally Neck Thyroid: Thyroid normal Lymphatic: no lymphadenopathy noted Resp Auscultation: clear to auscultation bilaterally Cardio Rate: regular rate Rhythm: regular rhythm Heart sounds: S1 normal heart sound present and S2 normal heart sound present GI Inspection: Yes normal to inspection Palpation (GI): Soft to palpation and Other GI palpation findings present (nontender, no cva tenderness) Auscultation: normoactive bowel sounds Rectal Exam - Male: Yes deferred Skin General skin exam: no rashes or lesions noted Neuro General: patient oriented x3, gait normal and no focal motor deficits Results Reviewed Results Reviewed: Laboratory Tests 07/08/24 09/16/24 10:06 15:55 Sodium 139 Potassium 4.3 Chloride 105 Carbon Dioxide 28 Anion Gap 10 L BUN 16 Creatinine 0.92 Estimated GFR > 60 Random Glucose 79 AST 23 ALT 24 Triglycerides 132 Cholesterol 211 H LDL Cholesterol, Calc [address]/CT chest wo IV con IMPRESSION: Emphysematous changes. Multifocal irregularly shaped groundglass opacities scattered throughout both lungs. Findings could represent COVID pneumonitis in the appropriate clinical setting. Other inflammatory disorders could also have this appearance as well as neoplasm. Clinical correlation and follow-up are recommended. US/US retroperitoneal comp IMPRESSION: No hydronephrosis. No residual amount of urine in a post void image. Bilateral renal cysts. Questionable nonobstructing calculus left kidney.. echo: Conclusions: - 1. Normal LV ejection fraction 55-60% 2. Normal cardiac valvular Dopplers 3. No gross pericardial effusion Coding Level of Care Code Est Pt Level 4 (79159) Complex EM visit Add On G2211 Diagnoses Renal cyst N28.1 Chronic obstructive pulmonary disease with acute exacerbation J44.1 COPD type: COPD with acute exacerbation Multiple pulmonary nodules R91.8 Smoker F17.200 Abnormal CBC R79.89 Hemochromatosis E83.119 Elevated blood pressure reading in office without diagnosis of hypertension R03.0 Assessment & Plan Assessment & Plan (1) Renal cyst: Code(s): N28.1 - Cyst of kidney, acquired Category: Medical Plan: Reminded patient of his appointment time and date (2) COPD (chronic obstructive pulmonary disease): Code(s): J44.9 - Chronic obstructive pulmonary disease, unspecified Category: Medical Qualifiers: COPD type: COPD with acute exacerbation Qualified Code(s): J44.1 - Chronic obstructive pulmonary disease with (acute) exacerbation Plan: Currently stable. Chest CT ordered. Advised that he does need to follow with pulmonology and to schedule an appointment for at least an annual check with them (3) Multiple pulmonary nodules: Code(s): R91.8 - Other nonspecific abnormal finding of lung field Category: Medical Plan: As above (4) Smoker: Code(s): F17.200 - Nicotine dependence, unspecified, uncomplicated Category: Social Hx Plan: Encouraged smoking cessation (5) Abnormal CBC: Code(s): R79.89 - Other specified abnormal findings of blood chemistry Category: Medical Plan: Requested notes from [facility]. We will recheck labs. (6) Hemochromatosis: Code(s): E83.119 - Hemochromatosis, unspecified Category: Medical Plan: As above. Discussed with him that he is scheduled at our blood bank on 05/11 (7) Elevated blood pressure reading in office without diagnosis of hypertension: Code(s): R03.0 - Elevated blood-pressure reading, without diagnosis of hypertension Category: Medical Plan: I would like him to monitor this at home. His is a nurse. She will help him keep track and I would like a one-month follow up with the nurses here to recheck his blood pressure. Orders: Orders Complete Blood Count Auto Diff Today E83.119 - Hemochromatosis, unspecified, F17.200 - Nicotine dependence, unspecified, uncomplicated, N28.1 - Cyst of kidney, acquired, R79.89 - Other specified abnormal findings of blood chemistry Lipid Panel Today E83.119 - Hemochromatosis, unspecified, F17.200 - Nicotine dependence, unspecified, uncomplicated, N28.1 - Cyst of kidney, acquired, R79.89 - Other specified abnormal findings of blood chemistry Hemoglobin A1c Today E83.119 - Hemochromatosis, unspecified, F17.200 - Nicotine dependence, unspecified, uncomplicated, N28.1 - Cyst of kidney, acquired, R73.01 - Impaired fasting glucose, R79.89 - Other specified abnormal findings of blood chemistry Prostate Specific Antigen Scr Today E83.119 - Hemochromatosis, unspecified, F17.200 - Nicotine dependence, unspecified, uncomplicated, N28.1 - Cyst of kidney, acquired, R79.89 - Other specified abnormal findings of blood chemistry, Z01.89 - Encounter for other specified special examinations IRON PROFILE Today E83.119 - Hemochromatosis, unspecified, F17.200 - Nicotine dependence, unspecified, uncomplicated, N28.1 - Cyst of kidney, acquired, R79.89 - Other specified abnormal findings of blood chemistry CT chest wo IV con Today J44.1 - Chronic obstructive pulmonary disease with (acute) exacerbation, R91.8 - Other nonspecific abnormal finding of lung field, R93.89 - Abnormal findings on diagnostic imaging of other specified body structures Comprehensive [place]. Panel Fast Today E83.119 - Hemochromatosis, unspecified, F17.200 - Nicotine dependence, unspecified, uncomplicated, N28.1 - Cyst of kidney, acquired, R79.89 - Other specified abnormal findings of blood chemistry TSH reflex Free T4 Today E83.119 - Hemochromatosis, unspecified, F17.200 - Nicotine dependence, unspecified, uncomplicated, N28.1 - Cyst of kidney, acquired, R79.89 - Other specified abnormal findings of blood chemistry UA CC w/rflx Micro + Cult Today E83.119 - Hemochromatosis, unspecified, F17.200 - Nicotine dependence, unspecified, uncomplicated, N28.1 - Cyst of kidney, acquired, R79.89 - Other specified abnormal findings of blood chemistry, Z13.220 - Encounter for screening for lipoid disorders Microalbumin, Random (w Creat) Today E83.119 - Hemochromatosis, unspecified, F17.200 - Nicotine dependence, unspecified, uncomplicated, N28.1 - Cyst of kidney, acquired, R79.89 - Other specified abnormal findings of blood chemistry Ferritin Today E83.119 - Hemochromatosis, unspecified, F17.200 - Nicotine dependence, unspecified, uncomplicated, N28.1 - Cyst of kidney, acquired, R79.89 - Other specified abnormal findings of blood chemistry Referrals Dermatology Referral L98.9 - Disorder of the skin and subcutaneous tissue, unspecified
[2025-05-05 08:35] VITALS: BP 152/86; PULSE 60; RESP 14; TEMP 36.4; O2SAT 98; BMI 21.2
[2025-05-05 08:38] VITALS: BP 156/82
== END 2025-05-05 08:57 | disposition home or self-care (01) ==
LOC: HO.HMCFM 08:29
PROVIDERS: PCP Physician Assistant; Visit Provider Physician Assistant
DX: N28.1 Cyst of kidney, acquired (principal); J44.1 Chronic obstructive pulmonary disease with (acute) exacerbation; R91.8 Other nonspecific abnormal finding of lung field; F17.200 Nicotine dependence, unspecified, uncomplicated; R79.89 Other specified abnormal findings of blood chemistry; E83.119 Hemochromatosis, unspecified; R03.0 Elevated blood-pressure reading, without diagnosis of hypertension

== ENCOUNTER 2025-05-06 08:56 | Outpatient (REF) | payer OTHER, SELFPAY ==
[2025-05-06 11:24] LABS: Appearance Urine Clear; Glucose Urine UA Negative (Negative); PH 6.0 (5.0-9.0); Specific Gravity - Urine 1.025 (1.005-1.025)
[2025-05-06 11:33] LABS: MANUAL DIFF FLAG NO
[2025-05-06 11:40] LABS: Hematocrit 38.4 % (42.0-52.0); Hemoglobin 12.4 g/dl (14.0-18.0); Imm Gran Abs Auto 0.03 X10*3/uL (0.00-0.03); Imm Gran Pct Auto 0.3 % (0.0-0.4); Lymphocytes Absolute Auto 2.1 X10*3/uL (1.2-4.9); Mean Corpuscular HGB Conc 32.3 g/dl (31.0-36.0); Mean Corpuscular Hemoglobin 27.4 pg (27.0-33.0); Mean Corpuscular Volume 84.8 fL (80.0-98.0); NRBC Abs Auto 0.000 X10*3/uL (0.0-0.012); NRBC Pct Auto 0.0 /100WBC (0.0-0.2); Platelet Count 254 X10*3/uL (160-400); Red Blood Count 4.53 X10*6/uL (4.60-5.80); White Blood Count 10.3 X10*3/uL (4.8-10.8)
[2025-05-06 12:04] LABS: Microalbum/Creatinine Ratio Ur 8.5 ug/mg cr (<30)
[2025-05-06 12:05] LABS: Hemoglobin A1C 107.0047 umol/L; Total Hemoglobin (HGBA1C) 3278.1361 umol/L
[2025-05-06 12:07] LABS: Alanine Aminotransferase 27 U/L (0-40); Albumin Level 4.3 g/dL (3.5-5.0); Alkaline Phosphatase 62 U/L (39-117); Anion Gap 11 (12-20); Aspartate Amino Transferase 31 U/L (5-37); Blood Urea Nitrogen 19 mg/dL (9-16); Calcium 9.4 mg/dL (8.4-10.2); Carbon Dioxide 27 mmol/L (22-29); Chloride 105 mmol/L (96-108); Cholesterol 198 mg/dL (<200); Estimated Glomerular Filt Rate > 60; HDL Cholesterol 54 mg/dL (>40); Iron 32 mcg/dL (45-160); Percent Iron Saturation 12 % (15-50); Potassium 4.3 mmol/L (3.3-5.1); Sodium 139 mmol/L (135-145); Total Iron Binding Capacity 275 mcg/dL (228-428); Total Protein 6.5 g/dL (6.5-8.0); Triglycerides 104 mg/dL (<150); Unsaturated Iron Binding 243 ug/dL
[2025-05-06 12:25] LABS: Prostate Specific Antigen 3.37 ng/mL (<0.05-4.0)
[2025-05-06 12:34] LABS: Ferritin 7 ng/mL (20-250)
== END 2025-05-06 08:57 | disposition home or self-care (01) ==
LOC: HO.WFDLDS 08:56
PROVIDERS: Nurse Practitioner Family; Visit Provider Physician Assistant
DX: Z01.89 Encounter for other specified special examinations (principal); Z12.5 Encounter for screening for malignant neoplasm of prostate; Z13.220 Encounter for screening for lipoid disorders; E83.119 Hemochromatosis, unspecified; N28.1 Cyst of kidney, acquired; N52.9 Male erectile dysfunction, unspecified; F17.200 Nicotine dependence, unspecified, uncomplicated; R79.89 Other specified abnormal findings of blood chemistry; R73.01 Impaired fasting glucose
CPT/HCPCS: 36415; 80053; 80061; 81003; 82043; 82570; 82728; 83036; 83540; 84153; 84443; 85025

== ENCOUNTER 2025-06-14 14:53 | Outpatient (REF) | payer OTHER, SELFPAY ==
--- NOTE | ~2025-06-14 | US_ITS ---
EXAMINATION: US KIDNEY BILATERAL HISTORY: N28.1 - Cyst of kidney, acquired TECHNIQUE: Real-time grayscale ultrasound imaging of the kidneys was performed and images were reviewed. COMPARISON: Comparison is made with the prior examination dated 08/31/2024. FINDINGS: Right kidney: The right kidney measures 10.6 x 4.3 x 4.4 cm. Renal parenchymal echotexture and thickness are normal. There is a 1.1 x 1.0 x 1.1 cm upper pole cyst. There is no hydronephrosis or renal calculi. Left Kidney: The left kidney measures 10.8 x 4.8 x 4.3 cm. Renal parenchymal echotexture and thickness are normal. There is a 0.9 x 0.6 x 0.5 cm cyst in the interpolar region demonstrating wall calcification. There is no hydronephrosis or renal calculi. US/US renal BI IMPRESSION: Bilateral renal cysts as described, without significant change. Electronically signed by: Carlos Manuel Gaitan MD 06/14/2025 03:38 PM EDT
== END 2025-06-14 14:54 | disposition home or self-care (01) ==
LOC: HO.US 14:53
PROVIDERS: PCP Physician Assistant; Visit Provider Nurse Practitioner Family
DX: N28.1 Cyst of kidney, acquired (principal)
CPT/HCPCS: 76775

== ENCOUNTER → 2025-06-14 14:54 | Outpatient (BNV) | payer OTHER, SELFPAY | PROVIDERS: PCP Physician Assistant; Visit Provider Radiology Diagnostic Radiology | DX: N28.1 Cyst of kidney, acquired (principal) | CPT/HCPCS: 76775 ==

== ENCOUNTER 2025-06-29 16:11 | Outpatient (REF) | payer OTHER, SELFPAY ==
--- NOTE | ~2025-06-29 | CT_ITS ---
CLINICAL HISTORY: J44.1 - Chronic obstructive pulmonary disease with (acute) exacerbation CT chest without contrast Comparison: CT/IN/SR - CT CHEST WITHOUT IV CONTRAST - 09/10/2024 01:42 PM EST Findings: The heart size is normal. The visualized thyroid and mediastinum are unremarkable. There are scattered pulmonary bullae. There is right lower lobe consolidation, possible pneumonia. The visualized upper abdomen is unremarkable. No acute fractures. IMPRESSION: 1. Lower lobe consolidation, possible pneumonia, superimposed on pulmonary bullous disease This document has been electronically signed by: Ceasar Andrea MD on 06/30/2025 23:03:18
== END 2025-06-29 16:12 | disposition home or self-care (01) ==
LOC: HO.CT 16:11
PROVIDERS: PCP Physician Assistant; Visit Provider Physician Assistant
DX: J44.1 Chronic obstructive pulmonary disease with (acute) exacerbation (principal); R91.8 Other nonspecific abnormal finding of lung field; R93.89 Abnormal findings on diagnostic imaging of other specified body structures
CPT/HCPCS: 71250

== ENCOUNTER → 2025-06-29 16:14 | Outpatient (BNV) | payer OTHER, SELFPAY | PROVIDERS: PCP Physician Assistant; Visit Provider Specialist | DX: R91.8 Other nonspecific abnormal finding of lung field (principal); J44.1 Chronic obstructive pulmonary disease with (acute) exacerbation | CPT/HCPCS: 71250 ==

== ENCOUNTER 2025-07-07 14:59 | Outpatient (AMB) | payer OTHER, SELFPAY ==
--- NOTE | 2025-07-07 15:12 | A.OFFVIS_ITS ---
Intake Visit Reasons: follow up/US Intake Note: patient presents today for: follow up/US/PSA urology medications: sildenafil blood thinners: none imaging done: 06/14/25 labs done 05/06/25: PSA 3.37, PSA screen 3.20 Entertainment Director Required: No Accompanied by: Spouse Allergies trazodone Allergy (Unknown, Verified 07/07/25 15:37) tremors Medication List - Last Reconciled 07/07/25 by COSME VidalesP- albuterol sulfate 90 mcg/actuation 2 puffs inhalation Q6H PRN bupropion HCl XL (Wellbutrin XL) 150 mg PO QAM doxycycline hyclate 100 mg PO BID fbostwbyjth-zjxvpevhn-qbnqzkxp 200-62.5-25 mcg (Trelegy Ellipta) 1 ea PO DAILY hydroxyzine HCl 25 mg PO BEDTIME ibuprofen-diphenhydramine cit 200-38 mg (Advil PM) 3 caps PO BEDTIME omeprazole 40 mg PO DAILY sildenafil 100 mg PO .PRN PRN 30 days tizanidine (Zanaflex) 4 mg PO Q8H PRN HPI Comments Details: Cl Zhao is a very pleasant 64-year-old male patient of Dr. Burnham who was accompanied by his significant other at today's office visit. He has a past medical history of umbilical hernia, pancreatic cysts, COPD, headaches, ED, anxiety, and depression. He presents to the office today for follow-up of his renal cysts. In discussion with the patient today reports to be doing and feeling well. Recent renal imaging results reviewed with the patient today. 06/23 bilateral kidneys are normal in echotexture and thickness. Bilateral renal cysts without significant change. Right kidney with 1.1 cm upper pole cyst and left kidney with 9 mm renal cysts. No hydronephrosis or renal calculi noted bilaterally. We discussed surveillance monitoring. When asked he does report baseline urinary frequency and nocturia however relates this to his increased consumption in caffeine (Soda/Coffee). However, he does feel symptoms are manageable independently. He otherwise denies incontinence, nocturia, hematuria, dysuria, foul smelling urine, changes to urinary stream, flank pain, fever, and or chills. He is happy with his current voiding parameters. In office urinalysis results reviewed with the patient today. PSA 05/23 3.4. When asked he does report family history of prostate cancer. He otherwise offers no other issues or concerns at this time. [facility] Medical History Umbilical hernia Pancreatic cyst Joint pain Headache Erectile dysfunction Anxiety and depression Abnormal chest CT Surgical History H/O hemorrhoidectomy H/O: vasectomy Family History Mother Liver disease Father Hx of CABG Prostate cancer Diabetes HTN (hypertension) Sister Cancer Social History Housing: House Alcohol intake: current Patient Tobacco Use Status: Current everyday Tobacco user Cigarette Packs Per Day: 2 Cigarettes Per Day: 30 e-Cigarette/Vaping Use: Never Used Second Hand Smoke Exposure: No service: No Current occupational status: employed Current occupational exposures/hazards: No Cognitive needs: No Hearing needs: Yes Vision needs: Yes Review of Systems Const All systems reviewed & are unremarkable except as noted in HPI and below Physical Exam Const General: cooperative, healthy appearing, comfortable, no acute distress, well developed, alert and awake Orientation/consciousness: patient oriented x3 Limitations: no limitations HEENT Head: Yes normal to inspection, Yes normocephalic and Yes atraumatic Ears: hearing grossly normal bilaterally Eyes General: appearance normal, both eyes and all related structures Neck Neck: Yes normal visual inspection and Yes trachea midline Chest Chest palpation & inspection: normal inspection of the chest Resp Effort & Inspection: normal respiratory effort and able to speak in complete sentences Cardio Rate: regular rate GI Inspection: Yes normal to inspection General: Yes no CVA tenderness Back/Spine/Pelvis Back: no CVA tenderness Skin General skin exam: no rashes or lesions noted Neuro General: patient oriented x3 Extrem General: Yes normal to inspection Psych Appearance: grossly normal and well kempt Mental Status: mental status grossly normal Speech and movement: Normal speech and movement present and Clear speech present Affect: normal affect Attitude: cooperative Thought process: Normal thought process present Thought content: Normal thought content present Insight: Fair insight present (Psych) Judgement: Fair judgement present (Psych) Results AMB Urinalysis, Automated UA Leukoctes 0 Neda/uL Last Edit by SATURNINO Linton on 07/07/25 15:23 UA Nitrite Last Edit by Caridad Winston [facility] on 07/07/25 15:23 UA Urobilinogen 0.2 mg/dL Last Edit by Caridad Winston [facility] on 07/07/25 15:2 3 UA Protein 15 mg/dL Last Edit by Caridad Winston [facility] on 07/07/25 15:23 UA pH 6.0 Last Edit by Caridad Winston [facility] on 07/07/25 15:23 UA Blood 0 Dorian/uL Last Edit by Caridad Winston [facility] on 07/07/25 15:23 UA Specific [place] 1.025 Last Edit by Caridad Winston [facility] on 07/07/25 15: 23 UA Ketone Last Edit by Caridad Winston [facility] on 07/07/25 15:23 UA Bilirubin 0 mg/dL Last Edit by Caridad Winston [facility] on 07/07/25 15:23 UA Glucose 0 mg/dL Last Edit by Caridad Winston [facility] on 07/07/25 15:23 Results Reviewed Results Reviewed: Laboratory Last Values Urine pH (Auto) 6.0 07/07/25 15:23 Specific [place] (Auto) 1.025 07/07/25 15:23 Urine Protein (Auto) 15 mg/dL 07/07/25 15:23 Glucose (UA)(Auto) 0 mg/dL 07/07/25 15:23 Urine Blood (Auto) 0 Dorian/uL 07/07/25 15:23 Urine Bilirubin (Auto) 0 mg/dL 07/07/25 15:23 Urine Urobilinogen (Auto) 0.2 mg/dL 07/07/25 15:23 Leukocyte Esterase (Auto) 0 Neda/uL 07/07/25 15:23 Date of Service: 06/14/25 Procedure(s): US renal BI FINDINGS: Right kidney: The right kidney measures 10.6 x 4.3 x 4.4 cm. Renal parenchymal echotexture and thickness are normal. There is a 1.1 x 1.0 x 1.1 cm upper pole cyst. There is no hydronephrosis or renal calculi. Left Kidney: The left kidney measures 10.8 x 4.8 x 4.3 cm. Renal parenchymal echotexture and thickness are normal. There is a 0.9 x 0.6 x 0.5 cm cyst in the interpolar region demonstrating wall calcification. There is no hydronephrosis or renal calculi. IMPRESSION: Bilateral renal cysts as described, without significant change. Assessment & Plan Assessment & Plan (1) Renal cyst: Code(s): N28.1 - Cyst of kidney, acquired Category: Medical (2) Erectile dysfunction: Code(s): N52.9 - Male erectile dysfunction, unspecified Category: Medical Qualifiers: Erectile dysfunction type: unspecified Qualified Code(s): N52.9 - Male erectile dysfunction, unspecified (3) Family hx of prostate cancer: Code(s): Z80.42 - Family history of malignant neoplasm of prostate Category: Medical Plan In office urinalysis results reviewed with the patient today; as noted above. Recent renal imaging results with the patient today; as noted above. Recent PSA results reviewed with the patient today; as noted above. He currently denies any bothersome urinary issues or concerns. He reports be happy with current voiding parameters. Will continue with surveillance monitoring. Will obtain retroperitoneal ultrasound in 6 months Will obtain PSA in 6 months Follow-up in 6 months with imaging and lab to be completed prior; or sooner with any issues, concerns, and or questions. Orders: Orders AMB Urinalysis Automated Today Z13.9 - Encounter for screening, unspecified US retroperitoneal comp 6 Months N28.1 - Cyst of kidney, acquired, Z80.42 - Family history of malignant neoplasm of prostate Prostate Specific Antigen 6 Months N52.9 - Male erectile dysfunction, unspecified Patient Instructions: The patient had an opportunity to ask questions regarding the treatment plan. All questions were answered. Physical exam, labs, and imaging were discussed and reviewed in detail. As well as risks, benefits, and discussion of treatment choices. No major barriers to understanding were identified. The patient expressed understanding and agreement with the above treatment plan. The patient was made aware they should contact our office by phone for worsening of their current condition, the appearance of new symptoms, or with any questions or concerns. Compliance is encouraged with any medications and follow up testing that is ordered. It is a privilege to be allowed the opportunity to participate in? your urological care.? Again, if you have any questions or concerns If you have any questions or concerns please do not hesitate to contact me. The office is [phone]. This note is constructed using voice recognition software. While every effort has been made to ensure accuracy honing job setter errors may have been included. Yours sincerely, ZACHERY Vidales Coding Level of Care Code Est Pt Level 3 (69605) Complex EM visit Add On G2211 Diagnoses Renal cyst N28.1 Erectile dysfunction, unspecified erectile dysfunction type N52.9 Erectile dysfunction type: unspecified Family hx of prostate cancer Z80.42
== END 2025-07-07 15:44 | disposition home or self-care (01) ==
LOC: HO.HUSH 15:00
PROVIDERS: PCP Physician Assistant; Visit Provider Nurse Practitioner Family
DX: N28.1 Cyst of kidney, acquired (principal); N52.9 Male erectile dysfunction, unspecified; Z80.42 Family history of malignant neoplasm of prostate; Z13.9 Encounter for screening, unspecified
CPT/HCPCS: 99213; G2211

== ENCOUNTER → 2025-07-07 14:59 | Outpatient (BNVA) | payer OTHER, SELFPAY | PROVIDERS: PCP Physician Assistant; Visit Provider Nurse Practitioner Family | DX: N28.1 Cyst of kidney, acquired (principal); N52.9 Male erectile dysfunction, unspecified; Z80.42 Family history of malignant neoplasm of prostate | CPT/HCPCS: 81003 ==

== ENCOUNTER 2025-07-21 14:17 | Outpatient (AMB) | payer OTHER, SELFPAY ==
--- NOTE | 2025-07-21 14:19 | A.OFFPC_ITS ---
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 Allergies trazodone Allergy (Unknown, Verified 07/21/25 14:22) tremors Tobacco use date assessed: 07/21/25 Dental Screening Dental Screen Date: 07/21/25 Did you have a dental visit in the last 12 months?: Yes Did you have a dental problem in the last 6 months where you did not have access to dental care?: Yes Was dental information given to patient?: Patient has dentist HPI 1 wk f/u 2nd antibiotic for pneumonia HPI Details Patient is a 64-year-old male with a significant past medical history of anxiety, depression, COPD, abnormal chest CT, fatigue and chronic pain presenting today for a follow up. PULM: Had a recent chest CT which showed a possible pneumonia. I did treat him with doxycycline in his sick symptoms did not improve so he was then started on Levaquin. He also received a prednisone taper. He is feeling better but still is coughing. No sinus pain or pressure. No fevers or chills. He still continues to smoke with no intention of quitting. Musculoskeletal: following with physiatry for back pain. He finds Zanaflex helpful. He also uses ibuprofen intermittently. GI: He was following with [facility] for GERD and his pancreatic cyst given his family history of pancreatic cancer. He states he went back to them this year. Psych: On Wellbutrin 150 mg daily. He takes hydroxyzine as needed at night. He does think that his medication could be increased because he does still have some depression symptoms and lack of motivation. Heme: He is following with [facility] for hemochromatosis but has not needed to have any treatment in over a year. He has an appointment scheduled in September. His last labs did show a mild iron anemia. Has not yet had this rechecked. Uro: follows [facility] for prostate checks, renal cysts and ED. [place] [facility] [place] [facility] Medical History Umbilical hernia Pancreatic cyst Joint pain Headache Erectile dysfunction Anxiety and depression Abnormal chest CT Surgical History H/O hemorrhoidectomy H/O: vasectomy Family History Mother Liver disease Father Hx of CABG Prostate cancer Diabetes HTN (hypertension) Sister Cancer Social History (Updated 07/21/25 @ 14:24 by Subhash Chatman MA) Housing: House Alcohol intake: current Patient Tobacco Use Status: Current everyday Tobacco user Cigarette Packs Per Day: 2 Cigarettes Per Day: 30 e-Cigarette/Vaping Use: Never Used Second Hand Smoke Exposure: No service: No Current occupational status: employed Current occupational exposures/hazards: No Cognitive needs: No Hearing needs: Yes Vision needs: Yes Questionnaire Thrive Questionnaire Date Thrive assessed: 11/18/24 I am a: Patient What is your living situation today?: I have a steady place to live Within the past 12 months, did the food you bought not last and you didn't have the money to get more?: Never true Within the past 12 months, did you worry whether your food would run out before you got money to buy more?: Never true Do you have trouble paying for medicines?: No Do you have trouble getting transportation to medical appointments?: No Do you have trouble paying your heating and electricity bill?: No Do you have trouble taking care of your child, family member or friend?: No Do you have trouble with day-to-day activities such as bathing, preparing meals, shopping, managing finances, etc.?: No Are you currently unemployed and looking for a job?: No Are you interested in more education?: No Please select the resources that you would like help with: None Currently or been in a relationship where the following occur: No concerns reported THRIVE Score: 0 WILBER-7 AMB Questionnaire WILBER-7 Date WILBER - 7 assessed: 07/08/24 Source: Developed by Drs. Carlos Manuel Mckinley, Yudith Alvarado, Saeed White and colleagues, with an educational fan from [email or web address]. Physical exam (Primary Care) Vital Signs: Last Vital Signs Temp 98 F 07/21/25 14:24 Pulse 76 07/21/25 14:24 Resp 20 07/21/25 14:24 BP 106/68 07/21/25 14:24 Pulse Ox 98 07/21/25 14:24 Oxygen Delivery Method Room Air 07/21/25 14:24 BMI result Body Mass Index 21.1 Tobacco/Smoking Status: Tobacco use Status Tobacco use date assessed 07/21/25 07/21/25 14:26 Patient Tobacco Use Status Current everyday Tobacco 07/21/25 14:24 e-Cigarette/Vaping Use Never Used 07/21/25 14:24 Thrive Assessment: Date of Thrive Assessment Date Thrive assessed 11/18/24 07/21/25 14:22 Currently or been in a relationship where the following occur: No concerns reported Const Orientation/consciousness: patient oriented x3 HENMT Ears: hearing grossly normal bilaterally Neck Thyroid: Thyroid normal Lymphatic: no lymphadenopathy noted Resp Auscultation: clear to auscultation bilaterally Cardio Rate: regular rate Rhythm: regular rhythm Heart sounds: S1 normal heart sound present and S2 normal heart sound present GI Inspection: Yes normal to inspection Palpation (GI): Soft to palpation and Other GI palpation findings present (nontender, no cva tenderness) Auscultation: normoactive bowel sounds Rectal Exam - Male: Yes deferred Skin General skin exam: no rashes or lesions noted Neuro General: patient oriented x3, gait normal and no focal motor deficits Coding Level of Care Code Est Pt Level 4 (63564) Complex EM visit Add On G2211 Diagnoses Lung infection J18.9 Anemia D64.9 Anxiety and depression F41.9; F32.A Assessment & Plan Assessment & Plan (1) Lung infection: Code(s): J18.9 - Pneumonia, unspecified organism Category: Medical Plan: Repeat chest x-ray in a couple of weeks to ensure resolution of pneumonia (2) Anemia: Code(s): D64.9 - Anemia, unspecified Category: Medical Plan: Recheck labs (3) Anxiety and depression: Code(s): F41.9 - Anxiety disorder, unspecified; F32.A - Depression, unspecified Category: Medical Plan: Increase Wellbutrin with short term follow up. If anything worsens or changes advised to follow up sooner. Advised to see local treatment should he develop any SI/HI. Orders: Orders Complete Blood Count Auto Diff Today D64.9 - Anemia, unspecified, J18.9 - Pneumonia, unspecified organism Comprehensive [place]. Panel Fast Today D64.9 - Anemia, unspecified, J18.9 - Pneumonia, unspecified organism Vitamin B12 and Folate Today D64.9 - Anemia, unspecified, J18.9 - Pneumonia, u nspecified organism IRON PROFILE Today D64.9 - Anemia, unspecified, J18.9 - Pneumonia, unspecified organism Ferritin Today D64.9 - Anemia, unspecified, J18.9 - Pneumonia, unspecified organism Medications: New bupropion HCl XL (Wellbutrin XL) 300 mg PO QAM 90 tabs 1RF Discontinued bupropion HCl XL (Wellbutrin XL) Discontinued Reason: Doctor's Order 150 mg PO QAM 90 tabs 3RF
[2025-07-21 14:24] VITALS: BP 106/68; PULSE 76; RESP 20; TEMP 36.6; O2SAT 98; BMI 21.1
== END 2025-07-21 14:46 | disposition home or self-care (01) ==
LOC: HO.HMCFM 14:18
PROVIDERS: PCP Physician Assistant; Visit Provider Physician Assistant
DX: J18.9 Pneumonia, unspecified organism (principal); D64.9 Anemia, unspecified; F41.9 Anxiety disorder, unspecified; F32.A Depression, unspecified

== ENCOUNTER 2025-07-29 07:30 | Outpatient (REF) | payer OTHER, SELFPAY ==
--- NOTE | ~2025-07-29 | XR_ITS ---
EXAMINATION: XR CHEST 2 VIEWS HISTORY: J18.9 - Pneumonia, unspecified organism COMPARISON: Comparison is made with the prior examination dated 07/09/2024. FINDINGS: PA and lateral views of the chest are submitted. There has been near complete clearing of the previously seen right lower lobe pneumonia. A small residual opacity remains. The left lung remains clear. There is no pleural effusion, pneumothorax, or pulmonary vascular congestion. The heart is normal in size. The bones are intact. XR/XR chest 2V IMPRESSION: Near complete clearing of the previously seen right lower lobe pneumonia. Continued follow-up is recommended to document complete resolution. Electronically signed by: Carlos Manuel Gaitan MD 07/29/2025 01:54 PM EDT
[2025-07-29 11:28] LABS: MANUAL DIFF FLAG NO
[2025-07-29 11:38] LABS: Hematocrit 40.7 % (42.0-52.0); Hemoglobin 12.7 g/dl (14.0-18.0); Imm Gran Abs Auto 0.06 X10*3/uL (0.00-0.03); Imm Gran Pct Auto 0.7 % (0.0-0.4); Lymphocytes Absolute Auto 1.9 X10*3/uL (1.2-4.9); Mean Corpuscular HGB Conc 31.2 g/dl (31.0-36.0); Mean Corpuscular Hemoglobin 27.3 pg (27.0-33.0); Mean Corpuscular Volume 87.3 fL (80.0-98.0); NRBC Abs Auto 0.000 X10*3/uL (0.0-0.012); NRBC Pct Auto 0.0 /100WBC (0.0-0.2); Platelet Count 260 X10*3/uL (160-400); Red Blood Count 4.66 X10*6/uL (4.60-5.80); White Blood Count 8.4 X10*3/uL (4.8-10.8)
[2025-07-29 12:06] LABS: Alanine Aminotransferase 25 U/L (0-40); Albumin Level 4.3 g/dL (3.5-5.0); Alkaline Phosphatase 61 U/L (39-117); Anion Gap 11 (12-20); Aspartate Amino Transferase 23 U/L (5-37); Blood Urea Nitrogen 17 mg/dL (9-16); Calcium 9.3 mg/dL (8.4-10.2); Carbon Dioxide 27 mmol/L (22-29); Chloride 104 mmol/L (96-108); Estimated Glomerular Filt Rate > 60; Iron 43 mcg/dL (45-160); Percent Iron Saturation 16 % (15-50); Potassium 4.6 mmol/L (3.3-5.1); Sodium 137 mmol/L (135-145); Total Iron Binding Capacity 271 mcg/dL (228-428); Total Protein 6.5 g/dL (6.5-8.0); Unsaturated Iron Binding 228 ug/dL
[2025-07-29 12:17] LABS: Ferritin 13 ng/mL (20-250)
[2025-07-29 12:26] LABS: Folate 3.4 ng/mL (> or = 4.0); Vitamin B12 331 pg/mL (200-900)
== END 2025-07-29 07:31 | disposition home or self-care (01) ==
LOC: HO.WFDLDS 07:30
PROVIDERS: PCP Physician Assistant; Visit Provider Physician Assistant
DX: J18.9 Pneumonia, unspecified organism (principal); D64.9 Anemia, unspecified
CPT/HCPCS: 36415; 71046; 80053; 82607; 82728; 82746; 83540; 85025

== ENCOUNTER → 2025-07-29 13:41 | Outpatient (BNV) | payer OTHER, SELFPAY | PROVIDERS: PCP Physician Assistant; Visit Provider Radiology Diagnostic Radiology | DX: J18.9 Pneumonia, unspecified organism (principal) | CPT/HCPCS: 71046 ==

== ENCOUNTER 2025-08-09 13:23 | Outpatient (AMB) | payer OTHER, SELFPAY ==
[2025-08-09 13:27] VITALS: BP 142/90; PULSE 64; O2SAT 99; BMI 21.3
--- NOTE | 2025-08-09 13:27 | MHC.OFFVIS ---
Vital Signs 08/09/25 13:27 Height 6 ft 1 in Weight 161 lb 2 oz BMI 21.3 BP 142/90 H Blood Pressure Location Rt brachial Position Sitting Pulse 64 Pulse Source Pulse Oximeter Pulse Oximetry (%) 99 Oxygen Delivery Method Room Air Intake Visit Reasons: pulm fuv Allergies trazodone Allergy (Unknown, Verified 08/09/25 13:29) tremors HPI HPI pulm fuv: Details: Cl is a pleasant 64-year-old female, current 60+ pack year history with underlying COPD. Patient has been lost to follow-up, last visit September 2023 [facility] Since last visit, he has experienced pneumonia three times this year, with the most recent episode occurring about a month ago. The patient was diagnosed with right lower lobe pneumonia via a CT scan on June 30, followed by a chest x-ray on July 29 indicating near complete resolution. He was treated with doxycycline starting July 01 and Levaquin on July 12, completing the course of antibiotics. Despite treatment, he continues to experience cough with yellowish-brown sputum and mild chest congestion. The patient reports shortness of breath, particularly in the afternoon, using Trelegy daily and has increased albuterol MDI multiple times per week. He is currently smoking two packs of cigarettes per day and has not expressed interest in quitting. Preventative measures discussed include the pneumonia vaccine and flu shot, which he has not yet received. [facility] Medical History Umbilical hernia Pancreatic cyst Joint pain Headache Erectile dysfunction Anxiety and depression Abnormal chest CT Surgical History H/O hemorrhoidectomy H/O: vasectomy Family History Mother Liver disease Father Hx of CABG Prostate cancer Diabetes HTN (hypertension) Sister Cancer Social History Housing: House Alcohol intake: current Patient Tobacco Use Status: Current everyday Tobacco user Cigarette Packs Per Day: 2 Cigarettes Per Day: 30 e-Cigarette/Vaping Use: Never Used Second Hand Smoke Exposure: No service: No Current occupational status: employed Current occupational exposures/hazards: No Cognitive needs: No Hearing needs: Yes Vision needs: Yes Review of Systems Const Denies chills, Denies excessive sweating, Denies fever(s), Denies headache(s) and Denies night sweats Eyes Denies dry eyes, Denies irritation and Denies itchy eyes ENT Reports Normal hearing present, Denies headache(s), Denies nasal congestion, Denies nasal discharge, Denies post nasal drip and Denies sore throat Card Denies chest pain, Denies chest pain at rest, Denies chest pain with activity, Denies claudication, Denies leg edema, Denies orthopnea and Denies paroxysmal nocturnal dyspnea Resp Denies pain on inspiration, Denies pain with cough and Denies stridor Musc Denies myalgias Neuro Reports Normal hearing present and Denies headache(s) Endo Denies excessive sweating Xavier/Lymph Denies lymphadenopathy Aller/Immun Denies itchy eyes and Denies seasonal rhinorrhea Physical Exam Vital Signs: Last Vital Signs Pulse 64 08/09/25 13:27 BP 142/90 H 08/09/25 13:27 Pulse Ox 99 08/09/25 13:27 Oxygen Delivery Method Room Air 08/09/25 13:27 BMI result Body Mass Index 21.3 Const General: cooperative, healthy appearing, comfortable, no acute distress, well developed and alert Orientation/consciousness: patient oriented x3 Limitations: no limitations HEENT Head: Yes normal to inspection, Yes normocephalic and Yes atraumatic Ears: hearing grossly normal bilaterally and external ears normal Eyes General: appearance normal, both eyes and all related structures Eyelids: Yes eyelids normal Sclerae: sclerae normal EOM: EOMs intact bilaterally Neck Neck: Yes normal visual inspection and Yes no lymphadenopathy Lymphatic: no lymphadenopathy noted Chest Chest palpation & inspection: normal inspection of the chest Resp Other: Crackles initially heard RLL, cleared after coughing; no wheezing noted, lungs sound clear. Effort & Inspection: normal respiratory effort, able to speak in complete sentences, no audible wheezes, no cough, no stridor, not tachypneic, no tripod positioning and no use of accessory muscles Auscultation: diminished lung sounds Cardio Jugular venous distension: no JVD Rate: regular rate Rhythm: regular rhythm Skin Other: warm, dry General skin exam: no rashes or lesions noted Neuro General: patient oriented x3 Cranial nerves: Yes Normal hearing present Cognition (Neuro): normal cognition Gait exam (Neuro): Normal gait present Extrem General: Yes normal to inspection, Yes capillary refill normal, Yes no clubbing, cyanosis or edema and Yes no pedal edema Psych Appearance: grossly normal and well kempt Speech and movement: Normal speech and movement present and Clear speech present Affect: normal affect Attitude: cooperative Thought process: Normal thought process present Thought content: Normal thought content present Insight: Good insight present (Psych) Judgement: Good judgement present (Psych) Results Reviewed Results Reviewed: [address] [address] [address] Scan Report Signed Patient: Cl Herbert MR#: [id number] : 1960 Acct:[id number] Age/Sex: 64 / M ADM Date: 06/29/25 Loc: HO.CT Attending Dr: Shea Burnham PA-C Ordering Physician: Shea Burnham Date of Service: 06/29/25 Procedure(s): CT chest wo IV con Accession Number(s): [id number] cc: Shea Burnham~ Report Number: [id number]: Total DLP = 144.00 mGy-cm Reason for Exam: J44.1 - Chronic obstructive pulmonary disease with (acute) exacerbation CLINICAL HISTORY: J44.1 - Chronic obstructive pulmonary disease with (acute) exacerbation CT chest without contrast Comparison: CT/MI/SR - CT CHEST WITHOUT IV CONTRAST - 09/10/2024 01:42 PM EST Findings: The heart size is normal. The visualized thyroid and mediastinum are unremarkable. There are scattered pulmonary bullae. There is right lower lobe consolidation, possible pneumonia. The visualized upper abdomen is unremarkable. No acute fractures. IMPRESSION: 1. Lower lobe consolidation, possible pneumonia, superimposed on pulmonary bullous disease This document has been electronically signed by: Ceasar Andrea MD on 06/30/2025 23:03:18 Dictated By: Ceasar Andrea MD Signed By: <Electronically signed by Ceasar Andrea MD in OV> 06/30/252302 DD/ 02 TD/TT: 06/30/252302 [employer] In[employer]: Assessment & Plan Assessment & Plan (1) COPD (chronic obstructive pulmonary disease): Code(s): J44.9 - Chronic obstructive pulmonary disease, unspecified Category: Medical Qualifiers: COPD type: COPD with acute exacerbation Qualified Code(s): J44.1 - Chronic obstructive pulmonary disease with (acute) exacerbation (2) Smoker: Code(s): F17.200 - Nicotine dependence, unspecified, uncomplicated Category: Social Hx (3) Multiple pulmonary nodules: Code(s): R91.8 - Other nonspecific abnormal finding of lung field Category: Medical Plan Patient with recurrent pneumonia and continues with bronchitic symptoms will send in Augmentin to address persistent symptoms and ensure resolution of pneumonia. He is aware to call if symptoms do not improve in seek emergent care if symptoms worsen. A follow-up chest x-ray is scheduled in four weeks to assess for resolving pneumonia and chest CT to confirm complete resolution. A nebulizer with Duoneb will be provided for home use to manage respiratory symptoms, in addition to Trelegy. The patient is advised to maintain current activity levels to prevent deconditioning. Smoking cessation is strongly recommended to reduce the risk of further lung damage, however patient not interested at this time.The patient is advised to receive the pneumonia vaccine, RSV and flu shot to prevent future respiratory infections. We will also repeat PFT to assess severity of COPD. All questions were answered and patient is in agreement of plan. Will follow-up in 4-6 weeks or sooner if needed. Orders: Orders XR chest 2V 4 Weeks Z87.01 - Personal history of pneumonia (recurrent) CT chest wo IV con 8 Weeks Z87.01 - Personal history of pneumonia (recurrent) Medications: New amoxicillin-pot clavulanate 875-125 mg 1 tab PO Q12H 20 tabs 0RF ipratropium-albuterol 0.5 mg-3 mg(2.5 mg base)/3 mL 3 mL inhalation Q6H PRN 180 mL 3RF wheezing Coding Level of Care Code Est Pt Level 4 (15749) Complex EM visit Add On G2211 Diagnoses Chronic obstructive pulmonary disease with acute exacerbation J44.1 COPD type: COPD with acute exacerbation Smoker F17.200 Multiple pulmonary nodules R91.8
== END 2025-08-09 14:02 | disposition home or self-care (01) ==
LOC: HO.HPSW 13:24
PROVIDERS: PCP Physician Assistant; Visit Provider Nurse Practitioner Family
DX: J44.1 Chronic obstructive pulmonary disease with (acute) exacerbation (principal); F17.200 Nicotine dependence, unspecified, uncomplicated; R91.8 Other nonspecific abnormal finding of lung field
CPT/HCPCS: 99214; G2211

== ENCOUNTER 2025-09-13 11:13 | Outpatient (REF) | payer OTHER, SELFPAY ==
--- NOTE | ~2025-09-13 | XR_ITS ---
EXAMINATION: XR CHEST 2 VIEWS HISTORY: J18.9 - Pneumonia, unspecified organism COMPARISON: Comparison is made with the prior examination dated 07/29/2025. FINDINGS: PA and lateral views of the chest are submitted. There is fine interstitial prominence bilaterally. The previously seen right basilar pneumonia has resolved. There is no pleural effusion, pneumothorax, or pulmonary vascular congestion. The heart is normal in size. The bones are intact. XR/XR chest 2V IMPRESSION: Findings interstitial prominence bilaterally. The previously seen right basilar pneumonia has resolved. Electronically signed by: Carlos Manuel Gaitan MD 09/13/2025 11:33 AM EST
== END 2025-09-13 11:14 | disposition home or self-care (01) ==
LOC: HO.XRAY 11:13
PROVIDERS: Absent Provider Nurse Practitioner Family; PCP Physician Assistant; Visit Provider Physician Assistant
DX: J18.9 Pneumonia, unspecified organism (principal)
CPT/HCPCS: 71046

== ENCOUNTER → 2025-09-13 11:20 | Outpatient (BNV) | payer OTHER, SELFPAY | PROVIDERS: Absent Provider Nurse Practitioner Family; PCP Physician Assistant; Visit Provider Radiology Diagnostic Radiology | DX: J18.9 Pneumonia, unspecified organism (principal) | CPT/HCPCS: 71046 ==